=== PATIENT | male | born 1975 | race Hispanic/Latino ===

== ENCOUNTER 2018-09-12 15:59 | Emergency (ER) | payer OTHER ==
[2018-09-12] MEDS ORDERED: IBUPROFEN PO ONE (20:09)
--- NOTE | 2018-09-12 21:27 | XRay Report ---
FINAL REPORT PROCEDURE: Cervical spine. TECHNIQUE: Cervical spine radiographs, AP, lateral, and open-mouth odontoid views. CPT 03325 HISTORY: Neck pain. COMPARISON: No prior studies are available for comparison. FINDINGS: The cervical vertebrae have normal height and alignment. There are no fractures. There is no subluxat ion. There is mild disc space narrowing at C5-6. The prevertebral soft tissues have normal thickness. IMPRESSION: Mild degenerative disc disease at C5-6.
--- NOTE | 2018-09-12 21:36 | XRay Report ---
FINAL REPORT PROCEDURE: Right shoulder. TECHNIQUE: Three views. HISTORY: right shoulder pain COMPARISON: No prior studies are available for comparison. FINDINGS: The bones appear intact without fracture or dislocation. The joint spaces appear normal. The soft tis sues are unremarkable. IMPRESSION: Normal study.
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
[2018-09-12 22:21] VITALS: BP 109/68
== END 2018-09-12 22:30 | disposition home or self-care (01) ==
LOC: ED 15:59
DX: S13.4XXA Sprain of ligaments of cervical spine, initial encounter (principal); S46.911A Strain of unspecified muscle, fascia and tendon at shoulder and upper arm level, right arm, initial encounter; F17.200 Nicotine dependence, unspecified, uncomplicated; V89.2XXA Person injured in unspecified motor-vehicle accident, traffic, initial encounter; Y93.89 Activity, other specified; Y92.488 Other paved roadways as the place of occurrence of the external cause; Y99.8 Other external cause status
CPT/HCPCS: 72040; 99283

== ENCOUNTER 2019-06-28 18:12 | Inpatient (IN) | payer OTHER ==
[2019-06-28 19:06] LABS: Bacteria,Urine 1+ /HPF (Negative); Bilirubin,Urine MOD (Negative); Blood,Urine SM (Negative); Color,Urine Amber (Yellow); Mucus,Urine 2+ /HPF
[2019-06-28 19:22] LABS: Basophils % (Auto) 0.3 % (0.0-1.8); Eosinophils # (Auto) 0.1 K/mm3 (0.0-0.4); Eosinophils % (Auto) 2.5 % (0.0-4.3); Hematocrit 41.7 % (35.5-45.6); Hemoglobin 14.5 gm/dl (11.8-15.2); Lymphocytes # (Auto) 0.1 K/mm3 (1.2-5.4); Lymphocytes % (Auto) 4.5 % (13.4-35.0); Mean Corpuscular HGB Conc 35 % (32-34); Mean Corpuscular Volume 84 fl (84-94); Monocytes # (Auto) 0.3 K/mm3 (0.0-0.8); Red Blood Count 4.98 M/mm3 (3.65-5.03); Red Cell Distribution Width 14.7 % (13.2-15.2)
[2019-06-28 19:25] LABS: Ictotest,Urine Positive (Negative)
[2019-06-28 19:34] LABS: BUN/Creatinine Ratio 29; Blood Urea Nitrogen 20 mg/dL (9-20); Hemolysis Index 0
[2019-06-28 20:12] LABS: Platelet Count 90 K/mm3 (140-440)
[2019-06-28 20:25] LABS: Alanine Aminotransferase 3664 units/L (7-56)
[2019-06-28] MEDS ORDERED: SODIUM CHLORIDE 0.9% 500 ML 500 ML IV ONE (21:02)
[2019-06-28] MEDS ORDERED: ONDANSETRON 4 MG/2 ML INJ IV ONE (21:02)
[2019-06-28] MEDS ORDERED: MORPHINE 4 MG/1 ML INJ IV ONE (21:02)
--- NOTE | 2019-06-28 21:06 | Emergency Department Report ---
ED General Adult HPI - General Chief complaint: Abdominal Pain Stated complaint: DEYHDRATION/HEP C Time Seen by Provider: 06/28/19 20:54 Source: patient, RN notes reviewed Mode of arrival: Ambulatory Limitations: No Limitations - History of Present Illness Initial comments: This is a 43-year-old gentleman. This patient is not known to this provider pre viously. He may have a known history of hepatitis C. He does not have a primary care doctor. 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 He presents to the ER with complaint of 2-3 days nontraumatic right flank and right upper quadrant pain. He endorses nausea, vomiting, diarrhea, malaise, fatigue and weakness. Pain is sharp and throbbing, increases with palpation and decreases with rest. There is no hematemesis or bright red blood per rectum. He is not sure if he's having any fevers. He denies dysuria. -: Gradual, days(s) Location: abdomen Radiation: abdomen Quality: aching Consistency: other Improves with: other Worsens with: other - Related Data Previous Rx's Medication Instructions Recorded Last Taken Type HYDROcodone/APAP 7.5-325 [[place] 1 each PO Q6HR PRN #14 tablet 05/27/14 Unknown Rx 7.5/325 mg] Ibuprofen [Motrin] 600 mg PO Q8H PRN #15 tablet 01/25/16 Unknown Rx Penicillin Vk [Veetids TAB] 500 mg PO QID #30 tablet 01/25/16 Unknown Rx Cyclobenzaprine [Flexeril] 10 mg PO QHS PRN #10 tablet 09/12/18 Unknown Rx Ibuprofen [Motrin] 600 mg PO Q8H PRN #20 tablet 09/12/18 Unknown Rx Allergies Allergy/AdvReac Type Severity Reaction Status Date / Time No Known Allergies Allergy Unverified 05/27/14 19:39 ED Review of Systems ROS: Stated complaint: DEYHDRATION/HEP C Other details as noted in HPI Constitutional: malaise, weakness. denies: fever ENT: denies: congestion Respiratory: denies: wheezing Cardiovascular: denies: syncope Gastrointestinal: abdominal pain, nausea, vomiting, diarrhea. denies: constipation, hematemesis, melena, hematochezia Genitourinary: denies: dysuria, testicular pain Musculoskeletal: back pain Skin: denies: lesions Neurological: weakness Hematological/Lymphatic: denies: easy bleeding ED Past Medical Hx - Past Medical History Previous Medical History?: Yes Additional medical history: Hep C - Surgical History Past Surgical History?: No - Social History Smoking Status: Current Every Day Smoker Substance Use Type: Other - Medications Home Medications: Home Medications Medication Instructions Recorded Confirmed Last Taken Type HYDROcodone/APAP 7.5-325 [[place] 1 each PO Q6HR PRN #14 tablet 05/27/14 Unknown Rx 7.5/325 mg] Ibuprofen [Motrin] 600 mg PO Q8H PRN #15 tablet 01/25/16 Unknown Rx Penicillin Vk [Veetids TAB] 500 mg PO QID #30 tablet 01/25/16 Unknown Rx Cyclobenzaprine [Flexeril] 10 mg PO QHS PRN #10 tablet 09/12/18 Unknown Rx Ibuprofen [Motrin] 600 mg PO Q8H PRN #20 tablet 09/12/18 Unknown Rx ED Physical Exam - General Limitations: No Limitations General appearance: alert, in no apparent distress - Head Head exam: Present: atraumatic, normocephalic - Eye Eye exam: Present: normal appearance, EOMI, scleral icterus - ENT ENT exam: Present: normal orophraynx, mucous membranes dry, normal external ear exam - Neck Neck exam: Present: normal inspection, full ROM. Absent: tenderness, meningismus - Respiratory Respiratory exam: Present: normal lung sounds bilaterally. Absent: respiratory distress - Cardiovascular Cardiovascular Exam: Present: normal rhythm, tachycardia, normal heart sounds. Absent: systolic murmur, diastolic murmur, rubs, gallop - GI/Abdominal GI/Abdominal exam: Present: soft, tenderness, other (right flank tender, right upper quadrant tenderness). Absent: distended, guarding, rebound, pulsatile mass - Rectal Rectal exam: Present: deferred - Extremities Exam Extremities exam: Present: normal inspection, full ROM, other (2+ pulses noted in the bilateral upper, lower extremities. There is no long bone tenderness. Musculoskeletal compartments are soft. The pelvis is stable.). Absent: pedal edema, joint swelling, calf tenderness - Back Exam Back exam: Present: normal inspection, full ROM. Absent: tenderness, CVA tenderness (R), CVA tenderness (L), paraspinal tenderness, vertebral tenderness - Neurological Exam Neurological exam: Present: alert, other (there is no facial droop. The tongue is midline. Extraocular movements are intact bilaterally. Patient speaking in full complete sentences. Shoulder shrug is intact bilaterally. Hearing is grossly intact bilaterally. Visual acuity intact to finger counting and color perception at a close distance. 5/5 strength 4 extremities. Sensation intact to light touch in 4 extremities.). Absent: motor sensory deficit - Psychiatric Psychiatric exam: Present: anxious - Skin Skin exam: Present: warm, other (patient appears to be jaundiced) ED Course Vital Signs 06/28/19 06/28/19 18:29 20:57 Temperature 98.9 F Pulse Rate 100 H Respiratory 18 20 Rate Blood Pressure 125/77 O2 Sat by Pulse 100 100 Oximetry - Reevaluation(s) Reevaluation #1: 06/28/19 21:42 Differential diagnosis, including but not limited to: Hepatitis, cholangitis, cholecystitis, bacterial peritonitis, colitis, diverticulitis, perforated viscus, appendicitis, renal colic, hepatic abscess Assessment and plan: 43-year-old gentleman who is jaundiced, tender, tachycardic, leukopenic, we will obtain ultrasound, CT scan abdomen pelvis, treat symptoms, and reassess. 06/28/19 23:32 Reevaluation #2: 06/28/19 22:26 Ultrasound suggest possible cholecystitis. CT scan abdomen pelvis pending. General surgeon on-call was paged. 06/28/19 22:34 Discussed with general surgeon on-call, Dr. Mcgarry, Who agrees to see the patient in the morning and consultation. Recommends Flagyl for empiric coverag e. Office opinion that issue is most likely hepatic in nature, and after CT scan is interpreted, morning team will determine if further imaging is indicated. Patient is also found to have a hypomagnesemia, therefore, magnesium supplementation is ordered. Reevaluation #3: 06/28/19 23:21 Hospital physician, Dr. Hussein, has accepted the patient to the medical service. ED Medical Decision Making - Lab Data Result diagrams: 06/28/19 18:56 06/28/19 18:56 Vital Signs 06/28/19 06/28/19 18:29 20:57 Temperature 98.9 F Pulse Rate 100 H Respiratory 18 20 Rate Blood Pressure 125/77 O2 Sat by Pulse 100 100 Oximetry Lab Results 06/28/19 06/28/19 06/28/19 Range/Units 18:44 18:56 18:56 WBC 3.2 L (4.5-11.0) K/mm3 RBC 4.98 (3.65-5.03) M/mm3 Hgb 14.5 (11.8-15.2) gm/dl Hct 41.7 (35.5-45.6) % MCV 84 (84-94) fl MCH 29 (28-32) pg MCHC 35 H (32-34) % RDW 14.7 (13.2-15.2) % Plt Count 90 L (140-440) K/mm3 Lymph % (Auto) 4.5 L (13.4-35.0) % [place] % (Auto) 8.0 H (0.0-7.3) % Eos % (Auto) 2.5 (0.0-4.3) % Baso % (Auto) 0.3 (0.0-1.8) % Lymph # 0.1 L (1.2-5.4) K/mm3 [place] # 0.3 (0.0-0.8) K/mm3 Eos # 0.1 (0.0-0.4) K/mm3 Baso # 0.0 (0.0-0.1) K/mm3 Seg Neutrophils % 84.7 H (40.0-70.0) % Seg Neutrophils # 2.7 (1.8-7.7) K/mm3 Sodium 134 L (137-145) mmol/L Potassium 4.5 (3.6-5.0) mmol/L Chloride 94.3 L (98-107) mmol/L Carbon Dioxide 24 (22-30) mmol/L Anion Gap 20 mmol/L BUN 20 (9-20) mg/dL Creatinine 0.7 L (0.8-1.5) mg/dL Estimated GFR > 60 ml/min BUN/Creatinine Ratio 29 % Glucose 113 H (75-100) mg/dL Calcium 9.0 (8.4-10.2) mg/dL Total Bilirubin 8.60 H (0.1-1.2) mg/dL AST 4506 H (5-40) units/L ALT 3664 H (7-56) units/L Alkaline Phosphatase 268 H (35-129) units/L Total Protein 6.6 (6.3-8.2) g/dL Albumin 4.0 (3.9-5) g/dL Albumin/Globulin Ratio 1.5 % Lipase 7 L (13-60) units/L Urine Color [place] (Yellow) Urine Turbidity Slightly-cloudy (Clear) Urine pH 5.0 (5.0-7.0) Ur Specific [place] 1.034 H (1.003-1.030) Urine Protein 100 mg/dl (Negative) mg/dL Urine Glucose (UA) Neg (Negative) mg/dL Urine Ketones Neg (Negative) mg/dL Urine Blood Sm (Negative) Urine Nitrite Neg (Negative) Urine Bilirubin Mod (Negative) Urine Ictotest Positive (Negative) Urine Urobilinogen 4.0 (<2.0) mg/dL Ur Leukocyte Esterase Neg (Negative) Urine WBC (Auto) 7.0 H (0.0-6.0) /HPF Urine RBC (Auto) 4.0 (0.0-6.0) /HPF U Epithel Cells (Auto) 1.0 (0-13.0) /HPF Urine Bacteria (Auto) 1+ (Negative) /HPF Urine Mucus 2+ /HPF Urine Yeast (Budding) 2+ /HPF - EKG Data When compared to previous EKG there are: previous EKG unavailable 06/28/19 22:25 The EKG shows a sinus rhythm, 90 beats for minute, normal axis, QTC 403 ms, there is poor R-wave progression, the EKG is abnormal, the EKG is not consistent with ST elevation myocardial infarction - Radiology Data Radiology results: report reviewed, image reviewed Print Report Referring Physician: RUPERT GREEN Patient Name: DARWIN TAMAYO Date of : 1975 Sex: Male Report Date: 2019-06-28 Report Status: Finalized Findings [facility] [address] [place] [address] Ultrasound Report Signed Patient: DARWIN TAMAYO MR#: [id number] : 1975 Acct:[id number] Age/Sex: 43 / M ADM Date: 06/28/19 Loc: ED Attending Dr: Ordering Physician: RUPERT GREEN MD Date of Service: 06/28/19 Procedure(s): US abdomen limited Accession Number(s): [id number] cc: RUPERT GREEN MD ULTRASOUND ABDOMEN, LIMITED (RIGHT UPPER QUADRANT) INDICATION / CLINICAL INFORMATION: ruq pain n/v. COMPARISON: None available. FINDINGS: PANCREAS: Normal seen due to overlying bowel gas. LIVER: Liver appears mildly enlarged measuring 19.4 cm. No focal abnormality. GALLBLADDER: No calcified gallstones identified. Marked gallbladder wall thickening and edema with the wall measuring up to 9 mm in thickness. BILE DUCTS: No significant abnormality. Common bile duct measures 1.0 mm. FREE FLUID: None. ADDITIONAL FINDINGS: None. IMPRESSION: 1. Thickened and edematous gallbladder wall without definite calcified gallstones noted. Clinical and laboratory correlation for acute cholecystitis is recommended. Signer Name: April Estes MD Signed: 06/28/2019 10:09 PM Workstation Name: [id number] Transcribed By: DT Dictated By: Dean Estes MD Electronically Authenticated By: Dean Estes MD Signed Date/Time: 06/28/19 1840 Print Report Referring Physician: RUPERT GREEN Patient Name: DARWIN TAMAYO Date of : 1975 Sex: Male Report Date: 2019-06-28 Report Status: [place] [address] Cat Scan Report Signed Patient: DARWIN TAMAYO MR#: [id number] : 1975 Acct:[id number] Age/Sex: 43 / M ADM Date: 06/28/19 Loc: ED Attending Dr: Ordering Physician: RUPERT GREEN MD Date of Service: 06/28/19 Procedure(s): CT abdomen pelvis w con Accession Number(s): [id number] cc: RUPERT GREEN MD CT abdomen pelvis w con INDICATION: abd and flank pain, right sided. TECHNIQUE: All CT scans at this location are performed using the uchoose dose modulation technique: Automated exposure control. CONTRAST: Omnipaque 300, 100 cc IV injection. COMPARISON: Ultrasound earlier the same day. CT ABDOMEN: Evaluation of the parenchymal organs demonstrates splenomegaly measuring 17.1 cm. The remaining parenchymal organs are unremarkable. Prominent thickening/edema of the gallbladder wall is noted. There are small nodes at the gastrohepatic ligament and along the lateral aspect of the leidy hepatis. The largest is a portacaval node measuring 1.5 cm in the greatest short axis dimension. There is also mild inflammation/fluid. Negative for abdominal mass or fluid collection. The bowel is not dilated or thickened. CT PELVIS: Negative fo r mass, fluid or inflammation. A small amount of pelvic free fluid is present. IMPRESSION: 1. Prominent gallbladder wall thickening/edema. 2. Small nodes with mild adjacent inflammation at the gastrohepatic ligament and along the lateral aspect of the leidy hepatis. This is of uncertain etiology. 3. Mild free fluid. Signer Name: Faraz Nolan MD Signed: 06/28/2019 11:08 PM Workstation Name: [id number] Transcribed By: ES Dictated By: Faraz Nolan MD Electronically Authenticated By: Faraz Nolan MD Signed Date/Time: 06/28/192307 DD/ 57 Critical Care Time: Yes Critical care time in (mins) excluding proc time.: 35 Critical care attestation.: If time is entered above; I have spent that time in minutes in the direct care of this critically ill patient, excluding procedure time. ED Disposition Clinical Impression: SIRS (systemic inflammatory response syndrome), Transaminitis, Hypomagnesemia Disposition: -09 OP ADMIT IP TO THIS HOSP Is pt being admited?: Yes Condition: Good
[2019-06-28] MEDS ORDERED: SODIUM CHLORIDE 0.9% 1000 ML 2,000 ML IV ONE (21:43)
[2019-06-28] MEDS ORDERED: cefTRIAXone/NS 1 GM/50 ML 1 GM/50 ML BAG IV ONE (21:43)
[2019-06-28] MEDS ORDERED: SODIUM CHLORIDE 0.9% 1000 ML 1,000 ML IV ONE (21:43)
[2019-06-28] MEDS ORDERED: HYDROmorphone 1 MG/1 ML INJ IV ONE (22:07)
--- NOTE | 2019-06-28 22:14 | Ultrasound Report ---
ULTRASOUND ABDOMEN, LIMITED (RIGHT UPPER QUADRANT) INDICATION / CLINICAL INFORMATION: ruq pain n/v. COMPARISON: None available. FINDINGS: PANCREAS: Normal seen due to overlying bowel gas. LIVER: Liver appears mildly enlarged measuring 19.4 cm. No focal abnormality. GALLBLADDER: No calcified gallstones identified. Marked gallbladder wall thickening and edema with th e wall measuring up to 9 mm in thickness. BILE DUCTS: No significant abnormality. Common bile duct measures 1.0 mm. FREE FLUID: None. ADDITIONAL FINDINGS: None. IMPRESSION: 1. Thickened and edematous gallbladder wall without definite calcified gallstones noted. Clinical and laboratory correlation for acute cholecystitis is recommended. Signer Name: April Estes MD Signed: 06/28/2019 10:09 PM Workstation Name: [id number]
[2019-06-28 22:23] LABS: Bilirubin,Direct 3.2 mg/dL (0-0.2)
[2019-06-28 22:31] LABS: INR 2.34 (0.87-1.13)
[2019-06-28 22:32] LABS: Partial Thromboplastin Time 46.6 Sec. (24.2-36.6)
[2019-06-28] MEDS ORDERED: metroNIDAZOLE/NS 500 MG/100 ML 500 MG/100 ML BAG IV ONE (22:33)
[2019-06-28] MEDS ORDERED: MAGNESIUM SULFATE 2 GM/50 ML BAG IV ONE (22:33)
[2019-06-28] MEDS ORDERED: MAGNESIUM OXIDE 400 MG TAB PO ONE (23:00)
[2019-06-28] MEDS ORDERED: MAGNESIUM SULFATE 1 GM in SODIUM CHLORIDE 0.9% 50 ML IV ONE (23:00)
--- NOTE | 2019-06-28 23:13 | Cat Scan Report ---
CT abdomen pelvis w con INDICATION: abd and flank pain, right sided. TECHNIQUE: All CT scans at this location are performed using the following dose modulation technique: Automated exposure control. CONTRAST: Omnipaque 300, 100 cc IV injection. COMPARISON: Ultrasound earlier the same day. CT ABDOMEN: Evaluation of the parenchymal organs demonstrates splenomegaly measuring 17.1 cm. The rem aining parenchymal organs are unremarkable. Prominent thickening/edema of the gallbladder wall is not ed. There are small nodes at the gastrohepatic ligament and along the lateral aspect of the leidy hep atis. The largest is a portacaval node measuring 1.5 cm in the greatest short axis dimension. There i s also mild inflammation/fluid. Negative for abdominal mass or fluid collection. The bowel is not dilated or thickened. CT PELVIS: Negative for mass, fluid or inflammation. A small amount of pelvic free fluid is present. IMPRESSION: 1. Prominent gallbladder wall thickening/edema. 2. Small nodes with mild adjacent inflammation at the gastrohepatic ligament and along the lateral as pect of the leidy hepatis. This is of uncertain etiology. 3. Mild free fluid. Signer Name: Faraz Nolan MD Signed: 06/28/2019 11:08 PM Workstation Name: [id number]
[2019-06-28] MEDS ORDERED: ACETAMINOPHEN 325 MG TAB PO PRN (23:58)
[2019-06-28] MEDS ORDERED: ONDANSETRON 4 MG/2 ML INJ IV PRN (23:58)
[2019-06-28] MEDS ORDERED: MORPHINE 2 MG/1 ML INJ IV PRN (23:58)
--- NOTE | 2019-06-28 23:58 | History and Physical Report ---
History of Present Illness Date of examination: 06/28/19 History of present illness: 43-year-old a history of hepatitis C to the [facility] emergency room complaining of abdominal pain 2 days. Pain is in the right upper quadrant which he describes as sharp, dull, constant, intensity 7/10, no radiation, cannot identify exacerbating factors. Admits to nausea vomiting, generalized weakness. Stated he had diarrhea today but now resolved: No fever or chills review Of Systems: Constitutional: no weight loss, fever, chills Ears, eyes, nose, mouth and throat: no nasal congestion, no nasal discharge, no sinus pressure, blurry vision, diplopia Neck: No neck pain or rigidity. Cardiovascular: No palpitations Respiratory: No cough, shortness of breath Gastrointestinal: No hematochezia Genitourinary : no dysuria, frequency , hematuria Musculoskeletal: no muscle ache , joint pain Integumentary: no rash, no pruritis Neurological: no parathesias, focal weakness Endocrine: no cold or heat intolerance, no polyuria or polydipsia Hematologic/Lymphatic: no easy bruising, no easy bleeding, no gland swelling Allergic/Immunologic: no urticaria, no angioedema. PAST MEDICAL HISTORY:hepatitis C PAST SURGICAL HISTORY: None FAMILY HISTORY:hypertension, diabetes SOCIAL HISTORY: Denies drugs, alcohol, smoke 1 pack daily Medications and Allergies Allergies Allergy/AdvReac Type Severity Reaction Status Date / Time No Known Allergies Allergy Unverified 05/27/14 19:39 Home Medications Medication Instructions Recorded Confirmed Last Taken Type HYDROcodone/APAP 7.5-325 [[place] 1 each PO Q6HR PRN #14 tablet 05/27/14 Unknown Rx 7.5/325 mg] Ibuprofen [Motrin] 600 mg PO Q8H PRN #15 tablet 01/25/16 Unknown Rx Penicillin Vk [Veetids TAB] 500 mg PO QID #30 tablet 01/25/16 Unknown Rx Cyclobenzaprine [Flexeril] 10 mg PO QHS PRN #10 tablet 09/12/18 Unknown Rx Ibuprofen [Motrin] 600 mg PO Q8H PRN #20 tablet 09/12/18 Unknown Rx Active Meds: Active Medications Magnesium Sulfate 1 gm/ Sodium (Chloride) 52 mls @ 52 mls/hr IV ONCE ONE Stop: 06/28/19 23:59 Exam - Physical Exam Narrative exam: General Apperance: The patient sitting in bed no acute distress HEENT: Normocephalic, atraumatic. Pupils equally round and reactive to light, extraocular movement intact, and no sclericterus or JVD or thyromegaly or nodule. Neck supple, no carotid bruit, mucous membranes moist, no exudate or erythema Heart: S1-S2, regular is rhythm Lungs: Clear to auscultation bilaterally, breathing comfortable Abdomen: Positive bowel sounds, soft, tenderin RUQ, nondistended, no organomegaly Extremities: No edema cyanosis clubbing Skin: no rash, nodule, warm and dry Neuro:CN 2 -12 intact, motor/sensory intact, speech is fluent - Constitutional Vitals: Temp Pulse Resp BP Pulse Ox 98.9 F 100 H 20 125/77 100 06/28/19 18:29 06/28/19 18:29 06/28/19 20:57 06/28/19 18:29 06/28/19 20:57 Results - Labs CBC & Chem 7: 06/28/19 18:56 06/28/19 18:56 Labs: Abnormal lab results 06/28/19 06/28/19 06/28/19 Range/Units 18:44 18:56 18:56 WBC 3.2 L (4.5-11.0) K/mm3 MCHC 35 H (32-34) % Plt Count 90 L (140-440) K/mm3 Lymph % (Auto) 4.5 L (13.4-35.0) % Perkins % (Auto) 8.0 H (0.0-7.3) % Lymph # 0.1 L (1.2-5.4) K/mm3 Seg Neutrophils % 84.7 H (40.0-70.0) % PT (12.2-14.9) Sec. INR (0.87-1.13) APTT (24.2-36.6) Sec. Sodium 134 L (137-145) mmol/L Chloride 94.3 L (98-107) mmol/L Creatinine 0.7 L (0.8-1.5) mg/dL Glucose 113 H (75-100) mg/dL Magnesium (1.7-2.3) mg/dL Total Bilirubin 8.60 H (0.1-1.2) mg/dL Direct Bilirubin (0-0.2) mg/dL AST 4506 H (5-40) units/L ALT 3664 H (7-56) units/L Alkaline Phosphatase 268 H (35-129) units/L Ammonia (25-60) umol/L Total Creatine Kinase (55-170) units/L Lipase 7 L (13-60) units/L Ur Specific [place] 1.034 H (1.003-1.030) Urine WBC (Auto) 7.0 H (0.0-6.0) /HPF Salicylates (2.8-20.0) mg/dL Acetaminophen (10.0-30.0) ug/mL 06/28/19 06/28/19 06/28/19 Range/Units 21:56 21:56 21:56 WBC (4.5-11.0) K/mm3 MCHC (32-34) % Plt Count (140-440) K/mm3 Lymph % (Auto) (13.4-35.0) % Perkins % (Auto) (0.0-7.3) % Lymph # (1.2-5.4) K/mm3 Seg Neutrophils % (40.0-70.0) % PT 25.2 H (12.2-14.9) Sec. INR 2.34 H (0.87-1.13) APTT 46.6 H (24.2-36.6) Sec. Sodium (137-145) mmol/L Chloride (98-107) mmol/L Creatinine (0.8-1.5) mg/dL Glucose (75-100) mg/dL Magnesium 0.70 L* (1.7-2.3) mg/dL Total Bilirubin 3.30 H (0.1-1.2) mg/dL Direct Bilirubin 3.2 H (0-0.2) mg/dL AST (5-40) units/L ALT (7-56) units/L Alkaline Phosphatase (35-129) units/L Ammonia 19.0 L (25-60) umol/L Total Creatine Kinase 13 L (55-170) units/L Lipase (13-60) units/L Ur Specific [place] (1.003-1.030) Urine WBC (Auto) (0.0-6.0) /HPF Salicylates (2.8-20.0) mg/dL Acetaminophen (10.0-30.0) ug/mL 06/28/19 06/28/19 Range/Units 21:56 21:56 WBC (4.5-11.0) K/mm3 MCHC (32-34) % Plt Count (140-440) K/mm3 Lymph % (Auto) (13.4-35.0) % Perkins % (Auto) (0.0-7.3) % Lymph # (1.2-5.4) K/mm3 Seg Neutrophils % (40.0-70.0) % PT (12.2-14.9) Sec. INR (0.87-1.13) APTT (24.2-36.6) Sec. Sodium (137-145) mmol/L Chloride (98-107) mmol/L Creatinine (0.8-1.5) mg/dL Glucose (75-100) mg/dL Magnesium (1.7-2.3) mg/dL Total Bilirubin (0.1-1.2) mg/dL Direct Bilirubin (0-0.2) mg/dL AST (5-40) units/L ALT (7-56) units/L Alkaline Phosphatase (35-129) units/L Ammonia (25-60) umol/L Total Creatine Kinase (55-170) units/L Lipase (13-60) units/L Ur Specific [place] (1.003-1.030) Urine WBC (Auto) (0.0-6.0) /HPF Salicylates < 0.3 L (2.8-20.0) mg/dL Acetaminophen < 5.0 L (10.0-30.0) ug/mL - Imaging and Cardiology CT scan - abdomen: report reviewed CT scan - pelvis: report reviewed US - abdomen: report reviewed Assessment and Plan Assessment Acute cholecystitis Hepatitis C Coagulopathy Thrombocytopenia Plan Admit to medicine Start IV fluid, IV Zosyn, IV morphine Surgery was consulted to see the patient DVT prophylaxis
[2019-06-29] MEDS ORDERED: MAGNESIUM SULFATE 2 GM/50 ML BAG IV ONE (00:38)
[2019-06-29] MEDS ORDERED: MORPHINE 2 MG/1 ML INJ ONE (01:18)
[2019-06-29] MEDS: SODIUM CHLORIDE 0.9% 1000 ML 1,000 ML IV SCH (03:35)
[2019-06-29] MEDS: PIPERACIL/TAZOBACTA 4.5/NS 100 4.5 GM/100 ML VIAL IV SCH ×3 (06:19→22:12)
[2019-06-29 06:22] LABS: Hematocrit 37.1 % (35.5-45.6); Hemoglobin 12.8 gm/dl (11.8-15.2); Mean Corpuscular HGB Conc 34 % (32-34); Mean Corpuscular Volume 84 fl (84-94); Red Blood Count 4.45 M/mm3 (3.65-5.03); Red Cell Distribution Width 14.5 % (13.2-15.2)
[2019-06-29 06:52] LABS: BUN/Creatinine Ratio 32; Blood Urea Nitrogen 16 mg/dL (9-20); Hemolysis Index 6
[2019-06-29 07:06] LABS: Alanine Aminotransferase 5452 units/L (7-56)
[2019-06-29 08:03] LABS: Platelet Count 66 K/mm3 (140-440)
[2019-06-29 08:46] LABS: Band Neutrophils # (Manual) 0.5 K/mm3; Basophils % (Manual) 0 % (0.0-1.8); Burr Cells Few; Ovalocytes 1+; Total Cells Counted 100
[2019-06-29 08:47] LABS: Platelet Estimate Consistent w Auto
--- NOTE | 2019-06-29 10:42 | Consultation ---
History of Present Illness Consult date: 06/29/19 Reason for consult: abdominal pain Chief complaint: abdominal pain - History of present illness History of present illness: 43 yo M with hx of Hep C who presents to the ER with 4 days of worsening epigas tric and RUQ abdominal pain. The pain started suddenly and has been constant. It does not radiate. It is dull in nature. He has never had pain like this in the past. He does not associate the pain with food. He has not had treatment or follow up for his Hep C due to lack on insurance. He admits to n/v (nonbloody/nonbilious) which is now resolved. He is asking for something to drink. No f/c, cp, sob, c/d. Past History Past Medical History: other (HepC) Past Surgical History: No surgical history Social history: smoking (1 PPD). denies: alcohol abuse, IV drug use Family history: no significant family history Medications and Allergies Allergies Allergy/AdvReac Type Severity Reaction Status Date / Time No Known Allergies Allergy Unverified 05/27/14 19:39 Home Medications Medication Instructions Recorded Confirmed Last Taken Type No Known Home Medications [No 06/29/19 06/29/19 Unknown History Reported Home Medications] Active Meds: Active Medications Acetaminophen (Tylenol) 650 mg PO Q4H PRN PRN Reason: Pain MILD(1-3)/Fever >100.5/VENCES Sodium Chloride (Nacl 0.9% 1000 Ml) 1,000 mls @ 100 mls/hr IV DIRECT JV Last Admin: 06/29/19 03:35 Dose: 100 mls/hr Documented by: Piperacillin Sod/Tazobactam Sod (Zosyn/Ns 4.5gm/100ml) 4.5 gm in 100 mls @ 200 mls/hr IV Q8HR JV; Protocol Last Admin: 06/29/19 06:19 Dose: 200 mls/hr Documented by: Morphine Sulfate (Morphine) 2 mg IV Q4H PRN PRN Reason: Pain, Moderate (4-6) Last Admin: 06/29/19 06:18 Dose: 2 mg Documented by: Ondansetron HCl (Zofran) 4 mg IV Q8H PRN PRN Reason: Nausea And Vomiting Sodium Chloride (Sodium Chloride Flush Syringe 10 Ml) 10 ml IV BID JV Sodium Chloride (Sodium Chloride Flush Syringe 10 Ml) 10 ml IV PRN PRN PRN Reason: LINE FLUSH Review of Systems All systems: negative (10 PT ROS performed and negative except for that listed in HPI) Exam Vital Signs Temp Pulse Resp BP Pulse Ox 98.9 F 100 H 18 125/77 100 06/28/19 18:29 06/28/19 18:29 06/28/19 18:29 06/28/19 18:29 06/28/19 18:29 Narrative exam: Gen: AAOx3. moderate distress due to abdominal pain ENT: mild scleral icterus. CV: S1, S2+ Resp; even and unlabored Abd: soft, ND, + RUQ and epigastric TTP. No r/r/g Ext: no c/c/e Results - Labs 06/29/19 06:08 06/29/19 06:08 Abnormal lab results 06/28/19 06/28/19 06/28/19 Range/Units 18:44 18:56 18:56 WBC 3.2 L (4.5-11.0) K/mm3 MCHC 35 H (32-34) % Plt Count 90 L (140-440) K/mm3 Lymph % (Auto) 4.5 L (13.4-35.0) % Nelson % (Auto) 8.0 H (0.0-7.3) % Lymph # 0.1 L (1.2-5.4) K/mm3 Seg Neutrophils % 84.7 H (40.0-70.0) % Lymphocytes % (Manual) (13.4-35.0) % Eosinophils % (Manual) (0.0-4.3) % Seg Neutrophils # Man (1.8-7.7) K/mm3 Lymphocytes # (Manual) (1.2-5.4) K/mm3 PT (12.2-14.9) Sec. INR (0.87-1.13) APTT (24.2-36.6) Sec. Sodium 134 L (137-145) mmol/L Chloride 94.3 L (98-107) mmol/L Carbon Dioxide (22-30) mmol/L Creatinine 0.7 L (0.8-1.5) mg/dL Glucose 113 H (75-100) mg/dL Calcium (8.4-10.2) mg/dL Magnesium (1.7-2.3) mg/dL Total Bilirubin 8.60 H (0.1-1.2) mg/dL Direct Bilirubin (0-0.2) mg/dL AST 4506 H (5-40) units/L ALT 3664 H (7-56) units/L Alkaline Phosphatase 268 H (35-129) units/L Ammonia (25-60) umol/L Total Creatine Kinase (55-170) units/L Total Protein (6.3-8.2) g/dL Albumin (3.9-5) g/dL Lipase 7 L (13-60) units/L Ur Specific [place] 1.034 H (1.003-1.030) Urine WBC (Auto) 7.0 H (0.0-6.0) /HPF Salicylates (2.8-20.0) mg/dL Acetaminophen (10.0-30.0) ug/mL 06/28/19 06/28/19 06/28/19 Range/Units 21:56 21:56 21:56 WBC (4.5-11.0) K/mm3 MCHC (32-34) % Plt Count (140-440) K/mm3 Lymph % (Auto) (13.4-35.0) % Nelson % (Auto) (0.0-7.3) % Lymph # (1.2-5.4) K/mm3 Seg Neutrophils % (40.0-70.0) % Lymphocytes % (Manual) (13.4-35.0) % Eosinophils % (Manual) (0.0-4.3) % Seg Neutrophils # Man (1.8-7.7) K/mm3 Lymphocytes # (Manual) (1.2-5.4) K/mm3 PT 25.2 H (12.2-14.9) Sec. INR 2.34 H (0.87-1.13) APTT 46.6 H (24.2-36.6) Sec. Sodium (137-145) mmol/L Chloride (98-107) mmol/L Carbon Dioxide (22-30) mmol/L Creatinine (0.8-1.5) mg/dL Glucose (75-100) mg/dL Calcium (8.4-10.2) mg/dL Magnesium 0.70 L* (1.7-2.3) mg/dL Total Bilirubin 3.30 H (0.1-1.2) mg/dL Direct Bilirubin 3.2 H (0-0.2) mg/dL AST (5-40) units/L ALT (7-56) units/L Alkaline Phosphatase (35-129) units/L Ammonia 19.0 L (25-60) umol/L Total Creatine Kinase 13 L (55-170) units/L Total Protein (6.3-8.2) g/dL Albumin (3.9-5) g/dL Lipase (13-60) units/L Ur Specific [place] (1.003-1.030) Urine WBC (Auto) (0.0-6.0) /HPF Salicylates (2.8-20.0) mg/dL Acetaminophen (10.0-30.0) ug/mL 06/28/19 06/28/19 06/29/19 Range/Units 21:56 21:56 06:08 WBC 1.8 L* (4.5-11.0) K/mm3 MCHC (32-34) % Plt Count 66 L (140-440) K/mm3 Lymph % (Auto) (13.4-35.0) % Nelson % (Auto) (0.0-7.3) % Lymph # (1.2-5.4) K/mm3 Seg Neutrophils % (40.0-70.0) % Lymphocytes % (Manual) 6.0 L (13.4-35.0) % Eosinophils % (Manual) 5.0 H (0.0-4.3) % Seg Neutrophils # Man 1.0 L (1.8-7.7) K/mm3 Lymphocytes # (Manual) 0.1 L (1.2-5.4) K/mm3 PT (12.2-14.9) Sec. INR (0.87-1.13) APTT (24.2-36.6) Sec. Sodium (137-145) mmol/L Chloride (98-107) mmol/L Carbon Dioxide (22-30) mmol/L Creatinine (0.8-1.5) mg/dL Glucose (75-100) mg/dL Calcium (8.4-10.2) mg/dL Magnesium (1.7-2.3) mg/dL Total Bilirubin (0.1-1.2) mg/dL Direct Bilirubin (0-0.2) mg/dL AST (5-40) units/L ALT (7-56) units/L Alkaline Phosphatase (35-129) units/L Ammonia (25-60) umol/L Total Creatine Kinase (55-170) units/L Total Protein (6.3-8.2) g/dL Albumin (3.9-5) g/dL Lipase (13-60) units/L Ur Specific [place] (1.003-1.030) Urine WBC (Auto) (0.0-6.0) /HPF Salicylates < 0.3 L (2.8-20.0) mg/dL Acetaminophen < 5.0 L (10.0-30.0) ug/mL 06/29/19 Range/Units 06:08 WBC (4.5-11.0) K/mm3 MCHC (32-34) % Plt Count (140-440) K/mm3 Lymph % (Auto) (13.4-35.0) % Nelson % (Auto) (0.0-7.3) % Lymph # (1.2-5.4) K/mm3 Seg Neutrophils % (40.0-70.0) % Lymphocytes % (Manual) (13.4-35.0) % Eosinophils % (Manual) (0.0-4.3) % Seg Neutrophils # Man (1.8-7.7) K/mm3 Lymphocytes # (Manual) (1.2-5.4) K/mm3 PT (12.2-14.9) Sec. INR (0.87-1.13) APTT (24.2-36.6) Sec. Sodium 134 L (137-145) mmol/L Chloride (98-107) mmol/L Carbon Dioxide 21 L (22-30) mmol/L Creatinine 0.5 L (0.8-1.5) mg/dL Glucose (75-100) mg/dL Calcium 8.0 L (8.4-10.2) mg/dL Magnesium (1.7-2.3) mg/dL Total Bilirubin 8.80 H (0.1-1.2) mg/dL Direct Bilirubin (0-0.2) mg/dL AST 7964 H (5-40) units/L ALT 5452 H (7-56) units/L Alkaline Phosphatase 226 H (35-129) units/L Ammonia (25-60) umol/L Total Creatine Kinase (55-170) units/L Total Protein 5.2 L D (6.3-8.2) g/dL Albumin 3.0 L (3.9-5) g/dL Lipase (13-60) units/L Ur Specific [place] (1.003-1.030) Urine WBC (Auto) (0.0-6.0) /HPF Salicylates (2.8-20.0) mg/dL Acetaminophen (10.0-30.0) ug/mL Diabetes panel 06/28/19 06/29/19 Range/Units 18:56 06:08 Sodium 134 L 134 L (137-145) mmol/L Potassium 4.5 4.0 (3.6-5.0) mmol/L Chloride 94.3 L 99.6 (98-107) mmol/L Carbon Dioxide 24 21 L (22-30) mmol/L BUN 20 16 (9-20) mg/dL Creatinine 0.7 L 0.5 L (0.8-1.5) mg/dL Glucose 113 H 76 (75-100) mg/dL Calcium 9.0 8.0 L (8.4-10.2) mg/dL AST 4506 H 7964 H (5-40) units/L ALT 3664 H 5452 H (7-56) units/L Alkaline Phosphatase 268 H 226 H (35-129) units/L Total Protein 6.6 5.2 L D (6.3-8.2) g/dL Albumin 4.0 3.0 L (3.9-5) g/dL Calcium panel 06/28/19 06/29/19 Range/Units 18:56 06:08 Calcium 9.0 8.0 L (8.4-10.2) mg/dL Albumin 4.0 3.0 L (3.9-5) g/dL Pituitary panel 06/28/19 06/29/19 Range/Units 18:56 06:08 Sodium 134 L 134 L (137-145) mmol/L Potassium 4.5 4.0 (3.6-5.0) mmol/L Chloride 94.3 L 99.6 (98-107) mmol/L Carbon Dioxide 24 21 L (22-30) mmol/L BUN 20 16 (9-20) mg/dL Creatinine 0.7 L 0.5 L (0.8-1.5) mg/dL Glucose 113 H 76 (75-100) mg/dL Calcium 9.0 8.0 L (8.4-10.2) mg/dL Adrenal panel 06/28/19 06/28/19 06/29/19 Range/Units 18:56 21:56 06:08 Sodium 134 L 134 L (137-145) mmol/L Potassium 4.5 4.0 (3.6-5.0) mmol/L Chloride 94.3 L 99.6 (98-107) mmol/L Carbon Dioxide 24 21 L (22-30) mmol/L BUN 20 16 (9-20) mg/dL Creatinine 0.7 L 0.5 L (0.8-1.5) mg/dL Glucose 113 H 76 (75-100) mg/dL Calcium 9.0 8.0 L (8.4-10.2) mg/dL Total Bilirubin 8.60 H 3.30 H 8.80 H (0.1-1.2) mg/dL AST 4506 H 7964 H (5-40) units/L ALT 3664 H 5452 H (7-56) units/L Alkaline Phosphatase 268 H 226 H (35-129) units/L Total Protein 6.6 5.2 L D (6.3-8.2) g/dL Albumin 4.0 3.0 L (3.9-5) g/dL - Imaging CT scan - abdomen: report reviewed, image reviewed CT scan - pelvis: report reviewed, image reviewed Assessment and Plan 43 yo M with 1. RUQ pain 2. abnormal gallbladder on imaging 3. Hep C 4. transaminitis and hyperbilirubinemia 5. thrombocytopenia 6. leukopenia ?sepsis Patient's labs indicative of acute liver failure. Meld score 26 and Child Vences C. Gallbladder edema/fluid may be secondary to acute liver issue. No stones seen in the gallbladder on imaging. 1. GI consult pending - discussed with GI team 2. may start liquid diet if no procedures or additional imaging requested by GI 3. Hep panel 4. prn pain control 5. IVF 6. Trend LFTS 7. empiric abx, bl and urine cx 8. If LFTs do not improve, will likely need referral to hepatobiliary surgery. Would not recommend cholecystectomy at this time. Thank you, please call with questions.
[2019-06-29] MEDS: HYDROmorphone 1 MG/1 ML INJ IV PRN ×3 (11:29→22:13)
--- NOTE | 2019-06-29 11:45 | Gastroenterology Consultation ---
<VIOLET MARTINI - Last Filed: 06/29/19 12:32> History of Present Illness - Reason for Consult Consult date: 06/29/19 liver failure Requesting physician: ONIEL WATTS - History of Present Illness Patient is a 43 y/o male with PMH of Hepatitis C who presented to ED with c/o RUQ abdominal pain with associated N/V and weakness x4 days. Upon admission, LFTs noted to be elevated with GI consulted for evaluation of liver failure. Abd CT and abd ultrasound showed gallbadder wall thickening/edema (acute cholecystitis?) but no biliary ductal dilatation. Surgery following. This morning patient was resting in bed w/o acute distress but ill appearing and family at bedside. Reports being told he had Hepatitis C a few years ago but no known cirrhosis. Denies taking new medications, tylenol, ETOH abuse, or IV drug use. +tattoos. Family hx of liver disease also due to HCV. No recent foreign travel, ingestion of food/water from new or different sources, or known ill contacts. No f/c, CP, SOB, or signs of bleeding. Past History Past Medical History: hepatitis (chronic hepatitis C) Past Surgical History: No surgical history Social history: smoking (1 PPD). denies: alcohol abuse, IV drug use Family history: diabetes, hypertension Medications and Allergies Allergies Allergy/AdvReac Type Severity Reaction Status Date / Time No Known Allergies Allergy Unverified 05/27/14 19:39 Home Medications Medication Instructions Recorded Confirmed Last Taken Type No Known Home Medications [No 06/29/19 06/29/19 Unknown History Reported Home Medications] Active Meds: Active Medications Acetaminophen (Tylenol) 650 mg PO Q4H PRN PRN Reason: Pain MILD(1-3)/Fever >100.5/VENCES Hydromorphone HCl (Dilaudid) 0.5 mg IV Q3H PRN PRN Reason: Pain , Severe (7-10) Last Admin: 06/29/19 11:29 Dose: 0.5 mg Documented by: Sodium Chloride (Nacl 0.9% 1000 Ml) 1,000 mls @ 100 mls/hr IV DIRECT JV Last Admin: 06/29/19 03:35 Dose: 100 mls/hr Documented by: Piperacillin Sod/Tazobactam Sod (Zosyn/Ns 4.5gm/100ml) 4.5 gm in 100 mls @ 200 mls/hr IV Q8HR [facility]; Protocol Last Admin: 06/29/19 06:19 Dose: 200 mls/hr Documented by: Ondansetron HCl (Zofran) 4 mg IV Q8H PRN PRN Reason: Nausea And Vomiting Sodium Chloride (Sodium Chloride Flush Syringe 10 Ml) 10 ml IV BID [facility] Last Admin: 06/29/19 11:29 Dose: 10 ml Documented by: Sodium Chloride (Sodium Chloride Flush Syringe 10 Ml) 10 ml IV PRN PRN PRN Reason: LINE FLUSH medications reviewed/updated as required Review of Systems - Review of Systems All systems: negative Constitutional: weakness Gastrointestinal: abdominal pain (RUQ), nausea, vomiting Exam - Constitutional Vital Signs: Temp Pulse Resp BP Pulse Ox 98.1 F 75 18 113/64 97 06/29/19 07:25 06/29/19 07:25 06/29/19 07:25 06/29/19 07:25 06/29/19 07:25 General appearance: no acute distress, other (ill appearing) - EENT Eyes: PERRL, EOM intact, scleral icterus - Respiratory Respiratory effort: normal Respiratory: bilateral: CTA - Cardiovascular Rhythm: regular - Gastrointestinal General gastrointestinal: Present: soft, tender (RUQ), non-distended, normal bowel sounds - Integumentary Integumentary: Present: warm, dry, jaundice - Neurologic Neurological: alert and oriented x3 - Labs CBC & Chem 7: 06/29/19 06:08 06/29/19 06:08 Lab Results: Laboratory Results - last 24 hr 06/28/19 06/28/19 06/28/19 18:44 18:56 18:56 WBC 3.2 L RBC 4.98 Hgb 14.5 Hct 41.7 MCV 84 MCH 29 MCHC 35 H RDW 14.7 Plt Count 90 L Lymph % (Auto) 4.5 L [place] % (Auto) 8.0 H Eos % (Auto) 2.5 Baso % (Auto) 0.3 Lymph # 0.1 L [place] # 0.3 Eos # 0.1 Baso # 0.0 Add Manual Diff Total Counted Seg Neutrophils % 84.7 H Seg Neuts % (Manual) Band Neutrophils % Lymphocytes % (Manual) Reactive Lymphs % (Man) Monocytes % (Manual) Eosinophils % (Manual) Basophils % (Manual) Metamyelocytes % Myelocytes % Promyelocytes % Blast Cells % Nucleated RBC % Seg Neutrophils # 2.7 Seg Neutrophils # Man Band Neutrophils # Lymphocytes # (Manual) Abs React Lymphs (Man) Monocytes # (Manual) Eosinophils # (Manual) Basophils # (Manual) Metamyelocytes # Myelocytes # Promyelocytes # Blast Cells # WBC Morphology Hypersegmented Neuts Hyposegmented Neuts Hypogranular Neuts Smudge Cells Toxic Granulation Toxic Vacuolation Dohle Bodies Pelger-Huet Anomaly [place] Rods Platelet Estimate Clumped Platelets Plt Clumps, EDTA Large Platelets Giant Platelets Platelet Satelliting Plt Morphology Comment RBC Morphology Dimorphic RBCs Polychromasia Hypochromasia Poikilocytosis Anisocytosis Microcytosis Macrocytosis Spherocytes Pappenheimer Bodies Sickle Cells Target Cells Tear Drop Cells Ovalocytes Helmet Cells [place] Bodies [place] Rings [place] Cells Bite Cells Crenated Cell Elliptocytes Acanthocytes (Spur) Rouleaux Hemoglobin C Crystals Schistocytes Malaria parasites Andrea Bodies Hem Pathologist Commnt PT INR APTT Sodium 134 L Potassium 4.5 Chloride 94.3 L Carbon Dioxide 24 Anion Gap 20 BUN 20 Creatinine 0.7 L Estimated GFR > 60 BUN/Creatinine Ratio 29 Glucose 113 H Lactic Acid Calcium 9.0 Magnesium Total Bilirubin 8.60 H Direct Bilirubin Indirect Bilirubin AST 4506 H ALT 3664 H Alkaline Phosphatase 268 H Ammonia Total Creatine Kinase Total Protein 6.6 Albumin 4.0 Albumin/Globulin Ratio 1.5 Lipase 7 L Urine Color Alisson Urine Turbidity Slightly-cloudy Urine pH 5.0 Ur Specific [place] 1.034 H Urine Protein 100 mg/dl Urine Glucose (UA) Neg Urine Ketones Neg Urine Blood Sm Urine Nitrite Neg Urine Bilirubin Mod Urine Ictotest Positive Urine Urobilinogen 4.0 Ur Leukocyte Esterase Neg Urine WBC (Auto) 7.0 H Urine RBC (Auto) 4.0 U Epithel Cells (Auto) 1.0 Urine Bacteria (Auto) 1+ Urine Mucus 2+ Urine Yeast (Budding) 2+ Salicylates Acetaminophen Plasma/Serum Alcohol 06/28/19 06/28/19 06/28/19 21:56 21:56 21:56 WBC RBC Hgb Hct MCV MCH MCHC RDW Plt Count Lymph % (Auto) [place] % (Auto) Eos % (Auto) Baso % (Auto) Lymph # [place] # Eos # Baso # Add Manual Diff Total Counted Seg Neutrophils % Seg Neuts % (Manual) Band Neutrophils % Lymphocytes % (Manual) Reactive Lymphs % (Man) Monocytes % (Manual) Eosinophils % (Manual) Basophils % (Manual) Metamyelocytes % Myelocytes % Promyelocytes % Blast Cells % Nucleated RBC % Seg Neutrophils # Seg Neutrophils # Man Band Neutrophils # Lymphocytes # (Manual) Abs React Lymphs (Man) Monocytes # (Manual) Eosinophils # (Manual) Basophils # (Manual) Metamyelocytes # Myelocytes # Promyelocytes # Blast Cells # WBC Morphology Hypersegmented Neuts Hyposegmented Neuts Hypogranular Neuts Smudge Cells Toxic Granulation Toxic Vacuolation Dohle Bodies Pelger-Huet Anomaly [place] Rods Platelet Estimate Clumped Platelets Plt Clumps, EDTA Large Platelets Giant Platelets Platelet Satelliting Plt Morphology Comment RBC Morphology Dimorphic RBCs Polychromasia Hypochromasia Poikilocytosis Anisocytosis Microcytosis Macrocytosis Spherocytes Pappenheimer Bodies Sickle Cells Target Cells Tear Drop Cells Ovalocytes Helmet Cells [place] Bodies [place] Rings [place] Cells Bite Cells Crenated Cell Elliptocytes Acanthocytes (Spur) Rouleaux Hemoglobin C Crystals Schistocytes Malaria parasites Andrea Bodies Hem Pathologist Commnt PT 25.2 H INR 2.34 H APTT 46.6 H Sodium Potassium Chloride Carbon Dioxide Anion Gap BUN Creatinine Estimated GFR BUN/Creatinine Ratio Glucose Lactic Acid 1.00 Calcium Magnesium 0.70 L* Total Bilirubin 3.30 H Direct Bilirubin 3.2 H Indirect Bilirubin 0.1 AST ALT Alkaline Phosphatase Ammonia Total Creatine Kinase 13 L Total Protein Albumin Albumin/Globulin Ratio Lipase Urine Color Urine Turbidity Urine pH Ur Specific [place] Urine Protein Urine Glucose (UA) Urine Ketones Urine Blood Urine Nitrite Urine Bilirubin Urine Ictotest Urine Urobilinogen Ur Leukocyte Esterase Urine WBC (Auto) Urine RBC (Auto) U Epithel Cells (Auto) Urine Bacteria (Auto) Urine Mucus Urine Yeast (Budding) Salicylates Acetaminophen Plasma/Serum Alcohol 06/28/19 06/28/19 06/28/19 21:56 21:56 21:56 WBC RBC Hgb Hct MCV MCH MCHC RDW Plt Count Lymph % (Auto) [place] % (Auto) Eos % (Auto) Baso % (Auto) Lymph # [place] # Eos # Baso # Add Manual Diff Total Counted Seg Neutrophils % Seg Neuts % (Manual) Band Neutrophils % Lymphocytes % (Manual) Reactive Lymphs % (Man) Monocytes % (Manual) Eosinophils % (Manual) Basophils % (Manual) Metamyelocytes % Myelocytes % Promyelocytes % Blast Cells % Nucleated RBC % Seg Neutrophils # Seg Neutrophils # Man Band Neutrophils # Lymphocytes # (Manual) Abs React Lymphs (Man) Monocytes # (Manual) Eosinophils # (Manual) Basophils # (Manual) Metamyelocytes # Myelocytes # Promyelocytes # Blast Cells # WBC Morphology Hypersegmented Neuts Hyposegmented Neuts Hypogranular Neuts Smudge Cells Toxic Granulation Toxic Vacuolation Dohle Bodies Pelger-Huet Anomaly Lyle Rods Platelet Estimate Clumped Platelets Plt Clumps, EDTA Large Platelets Giant Platelets Platelet Satelliting Plt Morphology Comment RBC Morphology Dimorphic RBCs Polychromasia Hypochromasia Poikilocytosis Anisocytosis Microcytosis Macrocytosis Spherocytes Pappenheimer Bodies Sickle Cells Target Cells Tear Drop Cells Ovalocytes Helmet Cells [place] Bodies [place] Rings [place] Cells Bite Cells Crenated Cell Elliptocytes Acanthocytes (Spur) Rouleaux Hemoglobin C Crystals Schistocytes Malaria parasites Andrea Bodies Hem Pathologist Commnt PT INR APTT Sodium Potassium Chloride Carbon Dioxide Anion Gap BUN Creatinine Estimated GFR BUN/Creatinine Ratio Glucose Lactic Acid Calcium Magnesium Total Bilirubin Direct Bilirubin Indirect Bilirubin AST ALT Alkaline Phosphatase Ammonia 19.0 L Total Creatine Kinase Total Protein Albumin Albumin/Globulin Ratio Lipase Urine Color Urine Turbidity Urine pH Ur Specific [place] Urine Protein Urine Glucose (UA) Urine Ketones Urine Blood Urine Nitrite Urine Bilirubin Urine Ictotest Urine Urobilinogen Ur Leukocyte Esterase Urine WBC (Auto) Urine RBC (Auto) U Epithel Cells (Auto) Urine Bacteria (Auto) Urine Mucus Urine Yeast (Budding) Salicylates < 0.3 L Acetaminophen < 5.0 L Plasma/Serum Alcohol 06/28/19 06/29/19 06/29/19 21:56 06:08 06:08 WBC 1.8 L* RBC 4.45 Hgb 12.8 Hct 37.1 MCV 84 MCH 29 MCHC 34 RDW 14.5 Plt Count 66 L Lymph % (Auto) [place] % (Auto) Eos % (Auto) Baso % (Auto) Lymph # [place] # Eos # Baso # Add Manual Diff Complete Total Counted 100 Seg Neutrophils % Seg Neuts % (Manual) 57.0 Band Neutrophils % 30.0 Lymphocytes % (Manual) 6.0 L Reactive Lymphs % (Man) 0 Monocytes % (Manual) 2.0 Eosinophils % (Manual) 5.0 H Basophils % (Manual) 0 Metamyelocytes % 0 Myelocytes % 0 Promyelocytes % 0 Blast Cells % 0 Nucleated RBC % Not Reportable Seg Neutrophils # Seg Neutrophils # Man 1.0 L Band Neutrophils # 0.5 Lymphocytes # (Manual) 0.1 L Abs React Lymphs (Man) 0.0 Monocytes # (Manual) 0.0 Eosinophils # (Manual) 0.1 Basophils # (Manual) 0.0 Metamyelocytes # 0.0 Myelocytes # 0.0 Promyelocytes # 0.0 Blast Cells # 0.0 WBC Morphology Not Reportable Hypersegmented Neuts Not Reportable Hyposegmented Neuts Not Reportable Hypogranular Neuts Not Reportable Smudge Cells Not Reportable Toxic Granulation Not Reportable Toxic Vacuolation Not Reportable Dohle Bodies Not Reportable Pelger-Huet Anomaly Not Reportable Lyle Rods Not Reportable Platelet Estimate Consistent w auto Clumped Platelets Not Reportable Plt Clumps, EDTA Not Reportable Large Platelets Not Reportable Giant Platelets Not Reportable Platelet Satelliting Not Reportable Plt Morphology Comment Not Reportable RBC Morphology Not Reportable Dimorphic RBCs Not Reportable Polychromasia Not Reportable Hypochromasia Not Reportable Poikilocytosis Not Reportable Anisocytosis Not Reportable Microcytosis Not Reportable Macrocytosis Not Reportable Spherocytes Not Reportable Pappenheimer Bodies Not Reportable Sickle Cells Not Reportable Target Cells Not Reportable Tear Drop Cells Not Reportable Ovalocytes 1+ Helmet Cells Not Reportable [place] Bodies Not Reportable [place] Rings Not Reportable [place] Cells Few Bite Cells Not Reportable Crenated Cell Not Reportable Elliptocytes Not Reportable Acanthocytes (Spur) Not Reportable Rouleaux Not Reportable Hemoglobin C Crystals Not Reportable Schistocytes Not Reportable Malaria parasites Not Reportable Andrea Bodies Not Reportable Hem Pathologist Commnt No PT INR APTT Sodium 134 L Potassium 4.0 Chloride 99.6 Carbon Dioxide 21 L Anion Gap 17 BUN 16 Creatinine 0.5 L Estimated GFR > 60 BUN/Creatinine Ratio 32 Glucose 76 Lactic Acid Calcium 8.0 L Magnesium Total Bilirubin 8.80 H Direct Bilirubin Indirect Bilirubin AST 7964 H ALT 5452 H Alkaline Phosphatase 226 H Ammonia Total Creatine Kinase Total Protein 5.2 L D Albumin 3.0 L Albumin/Globulin Ratio 1.4 Lipase Urine Color Urine Turbidity Urine pH Ur Specific [place] Urine Protein Urine Glucose (UA) Urine Ketones Urine Blood Urine Nitrite Urine Bilirubin Urine Ictotest Urine Urobilinogen Ur Leukocyte Esterase Urine WBC (Auto) Urine RBC (Auto) U Epithel Cells (Auto) Urine Bacteria (Auto) Urine Mucus Urine Yeast (Budding) Salicylates Acetaminophen Plasma/Serum Alcohol < 0.01 Assessment and Plan 1.elevated LFTs/liver failure? 2.H/o chronic hepatitis C -afebrile -WBC 1.8 -H/H WNL -plt 66, INR 2.34 -lipase and ammonia WNL -LFTs-[place] 8.80, AST 7864, ALT 5452, alk phos 226 -acetaminophen level negative -abd CT and ultrasound showed wall thickening/edema of gallbladder but no biliary ductal dilatation -surgery following -etiology-likely acute liver injury on chronic liver disease -MR/MRCP for further evaluation -stat repeat INR/hepatic panel along with other labs to r/o other causes (acute hepatitis panel, AYDEN, ceruloplasmin, HSV, flu, etc.) -If INR continues to trend up, give vit K challenge -continue antibiotics -avoid hepatotoxic agents -continue supportive care-low threshold to transfer to ICU for closer monitoring -will follow <JONAH GANN - Last Filed: 06/29/19 17:32> Medications and Allergies Active Meds: Active Medications Acetaminophen (Tylenol) 650 mg PO Q4H PRN PRN Reason: Pain MILD(1-3)/Fever >100.5/VENCES Hydromorphone HCl (Dilaudid) 0.5 mg IV Q3H PRN PRN Reason: Pain , Severe (7-10) Last Admin: 06/29/19 16:52 Dose: 0.5 mg Documented by: Sodium Chloride (Nacl 0.9% 1000 Ml) 1,000 mls @ 100 mls/hr IV DIRECT JV Last Admin: 06/29/19 03:35 Dose: 100 mls/hr Documented by: Piperacillin Sod/Tazobactam Sod (Zosyn/Ns 4.5gm/100ml) 4.5 gm in 100 mls @ 200 mls/hr IV Q8HR [facility]; Protocol Last Admin: 06/29/19 14:49 Dose: Not Given Documented by: Ondansetron HCl (Zofran) 4 mg IV Q8H PRN PRN Reason: Nausea And Vomiting Sodium Chloride (Sodium Chloride Flush Syringe 10 Ml) 10 ml IV BID [facility] Last Admin: 06/29/19 11:29 Dose: 10 ml Documented by: Sodium Chloride (Sodium Chloride Flush Syringe 10 Ml) 10 ml IV PRN PRN PRN Reason: LINE FLUSH Exam - Constitutional Vital Signs: Temp Pulse Resp BP Pulse Ox 97.8 F 67 18 138/80 97 06/29/19 12:54 06/29/19 12:54 06/29/19 12:54 06/29/19 12:54 06/29/19 12:54 - Labs CBC & Chem 7: 06/29/19 06:08 06/29/19 06:08 Lab Results: Laboratory Results - last 24 hr 06/28/19 06/28/19 06/28/19 18:44 18:56 18:56 WBC 3.2 L RBC 4.98 Hgb 14.5 Hct 41.7 MCV 84 MCH 29 MCHC 35 H RDW 14.7 Plt Count 90 L Lymph % (Auto) 4.5 L [place] % (Auto) 8.0 H Eos % (Auto) 2.5 Baso % (Auto) 0.3 Lymph # 0.1 L [place] # 0.3 Eos # 0.1 Baso # 0.0 Add Manual Diff Total Counted Seg Neutrophils % 84.7 H Seg Neuts % (Manual) Band Neutrophils % Lymphocytes % (Manual) Reactive Lymphs % (Man) Monocytes % (Manual) Eosinophils % (Manual) Basophils % (Manual) Metamyelocytes % Myelocytes % Promyelocytes % Blast Cells % Nucleated RBC % Seg Neutrophils # 2.7 Seg Neutrophils # Man Band Neutrophils # Lymphocytes # (Manual) Abs React Lymphs (Man) Monocytes # (Manual) Eosinophils # (Manual) Basophils # (Manual) Metamyelocytes # Myelocytes # Promyelocytes # Blast Cells # WBC Morphology Hypersegmented Neuts Hyposegmented Neuts Hypogranular Neuts Smudge Cells Toxic Granulation Toxic Vacuolation Dohle Bodies Pelger-Huet Anomaly [place] Rods Platelet Estimate Clumped Platelets Plt Clumps, EDTA Large Platelets Giant Platelets Platelet Satelliting Plt Morphology Comment RBC Morphology Dimorphic RBCs Polychromasia Hypochromasia Poikilocytosis Anisocytosis Microcytosis Macrocytosis Spherocytes Pappenheimer Bodies Sickle Cells Target Cells Tear Drop Cells Ovalocytes Helmet Cells [place] Bodies [place] Rings [place] Cells Bite Cells Crenated Cell Elliptocytes Acanthocytes (Spur) Rouleaux Hemoglobin C Crystals Schistocytes Malaria parasites Andrea Bodies Hem Pathologist Commnt PT INR APTT Sodium 134 L Potassium 4.5 Chloride 94.3 L Carbon Dioxide 24 Anion Gap 20 BUN 20 Creatinine 0.7 L Estimated GFR > 60 BUN/Creatinine Ratio 29 Glucose 113 H Lactic Acid Calcium 9.0 Magnesium Total Bilirubin 8.60 H Direct Bilirubin Indirect Bilirubin AST 4506 H ALT 3664 H Alkaline Phosphatase 268 H Ammonia Total Creatine Kinase Total Protein 6.6 Albumin 4.0 Albumin/Globulin Ratio 1.5 Lipase 7 L Urine Color [place]isson Urine Turbidity Slightly-cloudy Urine pH 5.0 Ur Specific [place] 1.034 H Urine Protein 100 mg/dl Urine Glucose (UA) Neg Urine Ketones Neg Urine Blood Sm Urine Nitrite Neg Urine Bilirubin Mod Urine Ictotest Positive Urine Urobilinogen 4.0 Ur Leukocyte Esterase Neg Urine WBC (Auto) 7.0 H Urine RBC (Auto) 4.0 U Epithel Cells (Auto) 1.0 Urine Bacteria (Auto) 1+ Urine Mucus 2+ Urine Yeast (Budding) 2+ Salicylates Acetaminophen Plasma/Serum Alcohol Hepatitis A IgM Ab Hep Bs Antigen Hep B Core IgM Ab Hepatitis C Antibody 06/28/19 06/28/19 06/28/19 21:56 21:56 21:56 WBC RBC Hgb Hct MCV MCH MCHC RDW Plt Count Lymph % (Auto) [place] % (Auto) Eos % (Auto) Baso % (Auto) Lymph # [place] # Eos # Baso # Add Manual Diff Total Counted Seg Neutrophils % Seg Neuts % (Manual) Band Neutrophils % Lymphocytes % (Manual) Reactive Lymphs % (Man) Monocytes % (Manual) Eosinophils % (Manual) Basophils % (Manual) Metamyelocytes % Myelocytes % Promyelocytes % Blast Cells % Nucleated RBC % Seg Neutrophils # Seg Neutrophils # Man Band Neutrophils # Lymphocytes # (Manual) Abs React Lymphs (Man) Monocytes # (Manual) Eosinophils # (Manual) Basophils # (Manual) Metamyelocytes # Myelocytes # Promyelocytes # Blast Cells # WBC Morphology Hypersegmented Neuts Hyposegmented Neuts Hypogranular Neuts Smudge Cells Toxic Granulation Toxic Vacuolation Dohle Bodies Pelger-Huet Anomaly [place] Rods Platelet Estimate Clumped Platelets Plt Clumps, EDTA Large Platelets Giant Platelets Platelet Satelliting Plt Morphology Comment RBC Morphology Dimorphic RBCs Polychromasia Hypochromasia Poikilocytosis Anisocytosis Microcytosis Macrocytosis Spherocytes Pappenheimer Bodies Sickle Cells Target Cells Tear Drop Cells Ovalocytes Helmet Cells [place] Bodies [place] Rings [place] Cells Bite Cells Crenated Cell Elliptocytes Acanthocytes (Spur) Rouleaux Hemoglobin C Crystals Schistocytes Malaria parasites Andrea Bodies Hem Pathologist Commnt PT 25.2 H INR 2.34 H APTT 46.6 H Sodium Potassium Chloride Carbon Dioxide Anion Gap BUN Creatinine Estimated GFR BUN/Creatinine Ratio Glucose Lactic Acid 1.00 Calcium Magnesium 0.70 L* Total Bilirubin 3.30 H Direct Bilirubin 3.2 H Indirect Bilirubin 0.1 AST ALT Alkaline Phosphatase Ammonia Total Creatine Kinase 13 L Total Protein Albumin Albumin/Globulin Ratio Lipase Urine Color Urine Turbidity Urine pH Ur Specific [place] Urine Protein Urine Glucose (UA) Urine Ketones Urine Blood Urine Nitrite Urine Bilirubin Urine Ictotest Urine Urobilinogen Ur Leukocyte Esterase Urine WBC (Auto) Urine RBC (Auto) U Epithel Cells (Auto) Urine Bacteria (Auto) Urine Mucus Urine Yeast (Budding) Salicylates Acetaminophen Plasma/Serum Alcohol Hepatitis A IgM Ab Hep Bs Antigen Hep B Core IgM Ab Hepatitis C Antibody 06/28/19 06/28/19 06/28/19 21:56 21:56 21:56 WBC RBC Hgb Hct MCV MCH MCHC RDW Plt Count Lymph % (Auto) [place] % (Auto) Eos % (Auto) Baso % (Auto) Lymph # [place] # Eos # Baso # Add Manual Diff Total Counted Seg Neutrophils % Seg Neuts % (Manual) Band Neutrophils % Lymphocytes % (Manual) Reactive Lymphs % (Man) Monocytes % (Manual) Eosinophils % (Manual) Basophils % (Manual) Metamyelocytes % Myelocytes % Promyelocytes % Blast Cells % Nucleated RBC % Seg Neutrophils # Seg Neutrophils # Man Band Neutrophils # Lymphocytes # (Manual) Abs React Lymphs (Man) Monocytes # (Manual) Eosinophils # (Manual) Basophils # (Manual) Metamyelocytes # Myelocytes # Promyelocytes # Blast Cells # WBC Morphology Hypersegmented Neuts Hyposegmented Neuts Hypogranular Neuts Smudge Cells Toxic Granulation Toxic Vacuolation Dohle Bodies Pelger-Huet Anomaly Lyle Rods Platelet Estimate Clumped Platelets Plt Clumps, EDTA Large Platelets Giant Platelets Platelet Satelliting Plt Morphology Comment RBC Morphology Dimorphic RBCs Polychromasia Hypochromasia Poikilocytosis Anisocytosis Microcytosis Macrocytosis Spherocytes Pappenheimer Bodies Sickle Cells Target Cells Tear Drop Cells Ovalocytes Helmet Cells [place] Bodies [place] Rings [place] Cells Bite Cells Crenated Cell Elliptocytes Acanthocytes (Spur) Rouleaux Hemoglobin C Crystals Schistocytes Malaria parasites Andrea Bodies Hem Pathologist Commnt PT INR APTT Sodium Potassium Chloride Carbon Dioxide Anion Gap BUN Creatinine Estimated GFR BUN/Creatinine Ratio Glucose Lactic Acid Calcium Magnesium Total Bilirubin Direct Bilirubin Indirect Bilirubin AST ALT Alkaline Phosphatase Ammonia 19.0 L Total Creatine Kinase Total Protein Albumin Albumin/Globulin Ratio Lipase Urine Color Urine Turbidity Urine pH Ur Specific [place] Urine Protein Urine Glucose (UA) Urine Ketones Urine Blood Urine Nitrite Urine Bilirubin Urine Ictotest Urine Urobilinogen Ur Leukocyte Esterase Urine WBC (Auto) Urine RBC (Auto) U Epithel Cells (Auto) Urine Bacteria (Auto) Urine Mucus Urine Yeast (Budding) Salicylates < 0.3 L Acetaminophen < 5.0 L Plasma/Serum Alcohol Hepatitis A IgM Ab Hep Bs Antigen Hep B Core IgM Ab Hepatitis C Antibody 06/28/19 06/29/19 06/29/19 21:56 06:08 06:08 WBC 1.8 L* RBC 4.45 Hgb 12.8 Hct 37.1 MCV 84 MCH 29 MCHC 34 RDW 14.5 Plt Count 66 L Lymph % (Auto) [place] % (Auto) Eos % (Auto) Baso % (Auto) Lymph # [place] # Eos # Baso # Add Manual Diff Complete Total Counted 100 Seg Neutrophils % Seg Neuts % (Manual) 57.0 Band Neutrophils % 30.0 Lymphocytes % (Manual) 6.0 L Reactive Lymphs % (Man) 0 Monocytes % (Manual) 2.0 Eosinophils % (Manual) 5.0 H Basophils % (Manual) 0 Metamyelocytes % 0 Myelocytes % 0 Promyelocytes % 0 Blast Cells % 0 Nucleated RBC % Not Reportable Seg Neutrophils # Seg Neutrophils # Man 1.0 L Band Neutrophils # 0.5 Lymphocytes # (Manual) 0.1 L Abs React Lymphs (Man) 0.0 Monocytes # (Manual) 0.0 Eosinophils # (Manual) 0.1 Basophils # (Manual) 0.0 Metamyelocytes # 0.0 Myelocytes # 0.0 Promyelocytes # 0.0 Blast Cells # 0.0 WBC Morphology Not Reportable Hypersegmented Neuts Not Reportable Hyposegmented Neuts Not Reportable Hypogranular Neuts Not Reportable Smudge Cells Not Reportable Toxic Granulation Not Reportable Toxic Vacuolation Not Reportable Dohle Bodies Not Reportable Pelger-Huet Anomaly Not Reportable Lyle Rods Not Reportable Platelet Estimate Consistent w auto Clumped Platelets Not Reportable Plt Clumps, EDTA Not Reportable Large Platelets Not Reportable Giant Platelets Not Reportable Platelet Satelliting Not Reportable Plt Morphology Comment Not Reportable RBC Morphology Not Reportable Dimorphic RBCs Not Reportable Polychromasia Not Reportable Hypochromasia Not Reportable Poikilocytosis Not Reportable Anisocytosis Not Reportable Microcytosis Not Reportable Macrocytosis Not Reportable Spherocytes Not Reportable Pappenheimer Bodies Not Reportable Sickle Cells Not Reportable Target Cells Not Reportable Tear Drop Cells Not Reportable Ovalocytes 1+ Helmet Cells Not Reportable [place] Bodies Not Reportable [place] Rings Not Reportable [place] Cells Few Bite Cells Not Reportable Crenated Cell Not Reportable Elliptocytes Not Reportable Acanthocytes (Spur) Not Reportable Rouleaux Not Reportable Hemoglobin C Crystals Not Reportable Schistocytes Not Reportable Malaria parasites Not Reportable Andrea Bodies Not Reportable Hem Pathologist Commnt No PT INR APTT Sodium 134 L Potassium 4.0 Chloride 99.6 Carbon Dioxide 21 L Anion Gap 17 BUN 16 Creatinine 0.5 L Estimated GFR > 60 BUN/Creatinine Ratio 32 Glucose 76 Lactic Acid Calcium 8.0 L Magnesium Total Bilirubin 8.80 H Direct Bilirubin Indirect Bilirubin AST 7964 H ALT 5452 H Alkaline Phosphatase 226 H Ammonia Total Creatine Kinase Total Protein 5.2 L D Albumin 3.0 L Albumin/Globulin Ratio 1.4 Lipase Urine Color Urine Turbidity Urine pH Ur Specific [place] Urine Protein Urine Glucose (UA) Urine Ketones Urine Blood Urine Nitrite Urine Bilirubin Urine Ictotest Urine Urobilinogen Ur Leukocyte Esterase Urine WBC (Auto) Urine RBC (Auto) U Epithel Cells (Auto) Urine Bacteria (Auto) Urine Mucus Urine Yeast (Budding) Salicylates Acetaminophen Plasma/Serum Alcohol < 0.01 Hepatitis A IgM Ab Hep Bs Antigen Hep B Core IgM Ab Hepatitis C Antibody 06/29/19 06/29/19 06/29/19 13:28 13:28 13:28 WBC RBC Hgb Hct MCV MCH MCHC RDW Plt Count Lymph % (Auto) [place] % (Auto) Eos % (Auto) Baso % (Auto) Lymph # [place] # Eos # Baso # Add Manual Diff Total Counted Seg Neutrophils % Seg Neuts % (Manual) Band Neutrophils % Lymphocytes % (Manual) Reactive Lymphs % (Man) Monocytes % (Manual) Eosinophils % (Manual) Basophils % (Manual) Metamyelocytes % Myelocytes % Promyelocytes % Blast Cells % Nucleated RBC % Seg Neutrophils # Seg Neutrophils # Man Band Neutrophils # Lymphocytes # (Manual) Abs React Lymphs (Man) Monocytes # (Manual) Eosinophils # (Manual) Basophils # (Manual) Metamyelocytes # Myelocytes # Promyelocytes # Blast Cells # WBC Morphology Hypersegmented Neuts Hyposegmented Neuts Hypogranular Neuts Smudge Cells Toxic Granulation Toxic Vacuolation Dohle Bodies Pelger-Huet Anomaly Lyle Rods Platelet Estimate Clumped Platelets Plt Clumps, EDTA Large Platelets Giant Platelets Platelet Satelliting Plt Morphology Comment RBC Morphology Dimorphic RBCs Polychromasia Hypochromasia Poikilocytosis Anisocytosis Microcytosis Macrocytosis Spherocytes Pappenheimer Bodies Sickle Cells Target Cells Tear Drop Cells Ovalocytes Helmet Cells [place] Bodies [place] Rings [place] Cells Bite Cells Crenated Cell Elliptocytes Acanthocytes (Spur) Rouleaux Hemoglobin C Crystals Schistocytes Malaria parasites Andrea Bodies Hem Pathologist Commnt PT 21.1 H INR 1.86 H APTT Sodium Potassium Chloride Carbon Dioxide Anion Gap BUN Creatinine Estimated GFR BUN/Creatinine Ratio Glucose Lactic Acid Calcium Magnesium Total Bilirubin 10.20 H Direct Bilirubin 8.8 H Indirect Bilirubin 1.4 AST 23440 H ALT 6937 H Alkaline Phosphatase 254 H Ammonia Total Creatine Kinase Total Protein 5.3 L Albumin 3.1 L Albumin/Globulin Ratio 1.4 Lipase Urine Color Urine Turbidity Urine pH Ur Specific [place] Urine Protein Urine Glucose (UA) Urine Ketones Urine Blood Urine Nitrite Urine Bilirubin Urine Ictotest Urine Urobilinogen Ur Leukocyte Esterase Urine WBC (Auto) Urine RBC (Auto) U Epithel Cells (Auto) Urine Bacteria (Auto) Urine Mucus Urine Yeast (Budding) Salicylates Acetaminophen Plasma/Serum Alcohol Hepatitis A IgM Ab Non-reactive Hep Bs Antigen Non-reactive Hep B Core IgM Ab Non-reactive Hepatitis C Antibody Reactive A Assessment and Plan Patient seen and examined; agree with note above. Patient presenting with acute liver injury (mental status stable without encephalopathy and normal ammonia, so currently without signs of acute liver failure). Underlying chronic liver disease 2/2 hep c with no obvious cirrhosis. Unclear enticing event for acute on chronic liver injury. The degree of elevation suggests possible ischemic hepatitis/shock liver (? hypotensive prior to arrival due to n/v), vs toxic/medication induced (denies tyleno use), vs viral/rule out acute hep b. recommend ICU monitoring if any change in mental status. MRCP to r/o obstructive process. empiric abx and trend labs and continue supportive care. Unfortunately pt does not have insurance so transfer to tertiary center/transplant hospital may not be feasible.
--- NOTE | 2019-06-29 12:39 | Progress Note ---
Assessment and Plan Assessment and plan: SIRS evidenced by wbc:3.2k, HR:>90, POA -exact source of infection unknown -possibility include UTI -blood and urine cultures pending RUQ with abnormal gallbladder on imaging -?acute cholecystitis -abd CT and ultrasound showed wall thickening/edema of gallbladder but no biliary ductal dilatation -surgery do not recommend immediate cholecystectomy -IVF and PRN narcotics for pain control Abnormal LFT -etiology, likely acute liver injury on chronic liver disease -avoid hepatotoxic agents -GI consulted and recommendations include: -MR/MRCP for further evaluation -repeat INR/hepatic panel along with other labs to r/o other causes (acute hepatitis panel, AYDEN, ceruloplasmin, HSV, flu, etc.) Chronic Hep C virus inf -will follow labs above -GI consulted, appreciate Thrombocytopenia/leukopenia -likely 2/2 CLD v acute infection Hyponatremia, likely chronic -stable Disp: condition guarded. d/c per clinical course History Interval history: Pt reports upper abdominal pain not controlled on morphine. No vomiting Hospitalist Physical - Constitutional Vitals: Temp Pulse Resp BP Pulse Ox 98.1 F 75 18 113/64 97 06/29/19 07:25 06/29/19 07:25 06/29/19 07:25 06/29/19 07:25 06/29/19 07:25 General appearance: Present: no acute distress - EENT Eyes: Present: PERRL, EOM intact ENT: hearing intact, clear oral mucosa - Neck Neck: Present: normal ROM - Respiratory Respiratory effort: normal Respiratory: bilateral: CTA - Extremities Extremities: No edema - Abdominal General gastrointestinal: soft, tender (RUQ and epigastric), normal bowel sounds - Integumentary Integumentary: Present: warm, dry - Psychiatric Psychiatric: appropriate mood/affect - Neurologic Neurologic: CNII-XII intact Results - Labs CBC & Chem 7: 06/29/19 06:08 06/29/19 06:08 Labs: Laboratory Last Values WBC 1.8 K/mm3 (4.5-11.0) L* 06/29/19 06:08 RBC 4.45 M/mm3 (3.65-5.03) 06/29/19 06:08 Hgb 12.8 gm/dl (11.8-15.2) 06/29/19 06:08 Hct 37.1 % (35.5-45.6) 06/29/19 06:08 MCV 84 fl (84-94) 06/29/19 06:08 MCH 29 pg (28-32) 06/29/19 06:08 MCHC 34 % (32-34) 06/29/19 06:08 RDW 14.5 % (13.2-15.2) 06/29/19 06:08 Plt Count 66 K/mm3 (140-440) L 06/29/19 06:08 Lymph % (Auto) 4.5 % (13.4-35.0) L 06/28/19 18:56 [place] % (Auto) 8.0 % (0.0-7.3) H 06/28/19 18:56 Eos % (Auto) 2.5 % (0.0-4.3) 06/28/19 18:56 Baso % (Auto) 0.3 % (0.0-1.8) 06/28/19 18:56 Lymph # 0.1 K/mm3 (1.2-5.4) L 06/28/19 18:56 [place] # 0.3 K/mm3 (0.0-0.8) 06/28/19 18:56 Eos # 0.1 K/mm3 (0.0-0.4) 06/28/19 18:56 Baso # 0.0 K/mm3 (0.0-0.1) 06/28/19 18:56 Add Manual Diff Complete 06/29/19 06:08 Total Counted 100 06/29/19 06:08 Seg Neutrophils % 84.7 % (40.0-70.0) H 06/28/19 18:56 Seg Neuts % (Manual) 57.0 % (40.0-70.0) 06/29/19 06:08 Band Neutrophils % 30.0 % 06/29/19 06:08 Lymphocytes % (Manual) 6.0 % (13.4-35.0) L 06/29/19 06:08 Reactive Lymphs % (Man) 0 % 06/29/19 06:08 Monocytes % (Manual) 2.0 % (0.0-7.3) 06/29/19 06:08 Eosinophils % (Manual) 5.0 % (0.0-4.3) H 06/29/19 06:08 Basophils % (Manual) 0 % (0.0-1.8) 06/29/19 06:08 Metamyelocytes % 0 % 06/29/19 06:08 Myelocytes % 0 % 06/29/19 06:08 Promyelocytes % 0 % 06/29/19 06:08 Blast Cells % 0 % 06/29/19 06:08 Nucleated RBC % Not Reportable 06/29/19 06:08 Seg Neutrophils # 2.7 K/mm3 (1.8-7.7) 06/28/19 18:56 Seg Neutrophils # Man 1.0 K/mm3 (1.8-7.7) L 06/29/19 06:08 Band Neutrophils # 0.5 K/mm3 06/29/19 06:08 Lymphocytes # (Manual) 0.1 K/mm3 (1.2-5.4) L 06/29/19 06:08 Abs React Lymphs (Man) 0.0 K/mm3 06/29/19 06:08 Monocytes # (Manual) 0.0 K/mm3 (0.0-0.8) 06/29/19 06:08 Eosinophils # (Manual) 0.1 K/mm3 (0.0-0.4) 06/29/19 06:08 Basophils # (Manual) 0.0 K/mm3 (0.0-0.1) 06/29/19 06:08 Metamyelocytes # 0.0 K/mm3 06/29/19 06:08 Myelocytes # 0.0 K/mm3 06/29/19 06:08 Promyelocytes # 0.0 K/mm3 06/29/19 06:08 Blast Cells # 0.0 K/mm3 06/29/19 06:08 WBC Morphology Not Reportable 06/29/19 06:08 Hypersegmented Neuts Not Reportable 06/29/19 06:08 Hyposegmented Neuts Not Reportable 06/29/19 06:08 Hypogranular Neuts Not Reportable 06/29/19 06:08 Smudge Cells Not Reportable 06/29/19 06:08 Toxic Granulation Not Reportable 06/29/19 06:08 Toxic Vacuolation Not Reportable 06/29/19 06:08 Dohle Bodies Not Reportable 06/29/19 06:08 Pelger-Huet Anomaly Not Reportable 06/29/19 06:08 Lyle Rods Not Reportable 06/29/19 06:08 Platelet Estimate Consistent w auto 06/29/19 06:08 Clumped Platelets Not Reportable 06/29/19 06:08 Plt Clumps, EDTA Not Reportable 06/29/19 06:08 Large Platelets Not Reportable 06/29/19 06:08 Giant Platelets Not Reportable 06/29/19 06:08 Platelet Satelliting Not Reportable 06/29/19 06:08 Plt Morphology Comment Not Reportable 06/29/19 06:08 RBC Morphology Not Reportable 06/29/19 06:08 Dimorphic RBCs Not Reportable 06/29/19 06:08 Polychromasia Not Reportable 06/29/19 06:08 Hypochromasia Not Reportable 06/29/19 06:08 Poikilocytosis Not Reportable 06/29/19 06:08 Anisocytosis Not Reportable 06/29/19 06:08 Microcytosis Not Reportable 06/29/19 06:08 Macrocytosis Not Reportable 06/29/19 06:08 Spherocytes Not Reportable 06/29/19 06:08 Pappenheimer Bodies Not Reportable 06/29/19 06:08 Sickle Cells Not Reportable 06/29/19 06:08 Target Cells Not Reportable 06/29/19 06:08 Tear Drop Cells Not Reportable 06/29/19 06:08 Ovalocytes 1+ 06/29/19 06:08 Helmet Cells Not Reportable 06/29/19 06:08 [place] Bodies Not Reportable 06/29/19 06:08 [place] Rings Not Reportable 06/29/19 06:08 [place] Cells Few 06/29/19 06:08 Bite Cells Not Reportable 06/29/19 06:08 Crenated Cell Not Reportable 06/29/19 06:08 Elliptocytes Not Reportable 06/29/19 06:08 Acanthocytes (Spur) Not Reportable 06/29/19 06:08 Rouleaux Not Reportable 06/29/19 06:08 Hemoglobin C Crystals Not Reportable 06/29/19 06:08 Schistocytes Not Reportable 06/29/19 06:08 Malaria parasites Not Reportable 06/29/19 06:08 Andrea Bodies Not Reportable 06/29/19 06:08 Hem Pathologist Commnt No 06/29/19 06:08 PT 25.2 Sec. (12.2-14.9) H 06/28/19 21:56 INR 2.34 (0.87-1.13) H 06/28/19 21:56 APTT 46.6 Sec. (24.2-36.6) H 06/28/19 21:56 Sodium 134 mmol/L (137-145) L 06/29/19 06:08 Potassium 4.0 mmol/L (3.6-5.0) 06/29/19 06:08 Chloride 99.6 mmol/L (98-107) 06/29/19 06:08 Carbon Dioxide 21 mmol/L (22-30) L 06/29/19 06:08 Anion Gap 17 mmol/L 06/29/19 06:08 BUN 16 mg/dL (9-20) 06/29/19 06:08 Creatinine 0.5 mg/dL (0.8-1.5) L 06/29/19 06:08 Estimated GFR > 60 ml/min 06/29/19 06:08 BUN/Creatinine Ratio 32 % 06/29/19 06:08 Glucose 76 mg/dL (75-100) 06/29/19 06:08 Lactic Acid 1.00 mmol/L (0.7-2.0) 06/28/19 21:56 Calcium 8.0 mg/dL (8.4-10.2) L 06/29/19 06:08 Magnesium 0.70 mg/dL (1.7-2.3) L* 06/28/19 21:56 Total Bilirubin 8.80 mg/dL (0.1-1.2) H 06/29/19 06:08 Direct Bilirubin 3.2 mg/dL (0-0.2) H 06/28/19 21:56 Indirect Bilirubin 0.1 mg/dL 06/28/19 21:56 AST 7964 units/L (5-40) H 06/29/19 06:08 ALT 5452 units/L (7-56) H 06/29/19 06:08 Alkaline Phosphatase 226 units/L (35-129) H 06/29/19 06:08 Ammonia 19.0 umol/L (25-60) L 06/28/19 21:56 Total Creatine Kinase 13 units/L (55-170) L 06/28/19 21:56 Total Protein 5.2 g/dL (6.3-8.2) L D 06/29/19 06:08 Albumin 3.0 g/dL (3.9-5) L 06/29/19 06:08 Albumin/Globulin Ratio 1.4 % 06/29/19 06:08 Lipase 7 units/L (13-60) L 06/28/19 18:56 Urine Color [place] (Yellow) 06/28/19 18:44 Urine Turbidity Slightly-cloudy (Clear) 06/28/19 18:44 Urine pH 5.0 (5.0-7.0) 06/28/19 18:44 Ur Specific [place] 1.034 (1.003-1.030) H 06/28/19 18:44 Urine Protein 100 mg/dl mg/dL (Negative) 06/28/19 18:44 Urine Glucose (UA) Neg mg/dL (Negative) 06/28/19 18:44 Urine Ketones Neg mg/dL (Negative) 06/28/19 18:44 Urine Blood Sm (Negative) 06/28/19 18:44 Urine Nitrite Neg (Negative) 06/28/19 18:44 Urine Bilirubin Mod (Negative) 06/28/19 18:44 Urine Ictotest Positive (Negative) 06/28/19 18:44 Urine Urobilinogen 4.0 mg/dL (<2.0) 06/28/19 18:44 Ur Leukocyte Esterase Neg (Negative) 06/28/19 18:44 Urine WBC (Auto) 7.0 /HPF (0.0-6.0) H 06/28/19 18:44 Urine RBC (Auto) 4.0 /HPF (0.0-6.0) 06/28/19 18:44 U Epithel Cells (Auto) 1.0 /HPF (0-13.0) 06/28/19 18:44 Urine Bacteria (Auto) 1+ /HPF (Negative) 06/28/19 18:44 Urine Mucus 2+ /HPF 06/28/19 18:44 Urine Yeast (Budding) 2+ /HPF 06/28/19 18:44 Salicylates < 0.3 mg/dL (2.8-20.0) L 06/28/19 21:56 Acetaminophen < 5.0 ug/mL (10.0-30.0) L 06/28/19 21:56 Plasma/Serum Alcohol < 0.01 % (0-0.07) 06/28/19 21:56 Active Medications - Current Medications Current Medications: Generic Name Dose Route Start Last Admin Trade Name Freq PRN Reason Stop Dose Admin Acetaminophen 650 mg 06/28/19 23:58 Tylenol PO Q4H PRN Pain MILD(1-3)/Fever >100.5/VENCES Hydromorphone HCl 0.5 mg 06/29/19 10:42 06/29/19 11:29 Dilaudid IV 0.5 mg Q3H PRN Administration Pain , Severe (7-10) Sodium Chloride 1,000 mls @ 100 mls/hr 06/28/19 23:45 06/29/19 03:35 Nacl 0.9% 1000 Ml IV 100 mls/hr DIRECT JV Administration Piperacillin Sod/Tazobactam Sod 4.5 gm in 100 mls @ 200 mls/hr 06/29/19 06:00 06/29/19 06:19 Zosyn/Ns 4.5gm/100ml IV 200 mls/hr Q8HR JV Administration Protocol Ondansetron HCl 4 mg 06/28/19 23:58 Zofran IV Q8H PRN Nausea And Vomiting Sodium Chloride 10 ml 06/29/19 10:00 06/29/19 11:29 Sodium Chloride Flush Syringe 10 Ml IV 10 ml BID JV Administration Sodium Chloride 10 ml 06/28/19 23:58 Sodium Chloride Flush Syringe 10 Ml IV PRN PRN LINE FLUSH
[2019-06-29 14:40] LABS: INR 1.86 (0.87-1.13)
[2019-06-29 14:47] LABS: Albumin 3.1 g/dL (3.9-5); Bilirubin,Direct 8.8 mg/dL (0-0.2)
[2019-06-29 14:55] LABS: Hepatitis B Surface Antigen Non-Reactive (Negative); Hepatitis C Virus Antibody Reactive (NonReactive)
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
[2019-06-30] MEDS: HYDROmorphone 1 MG/1 ML INJ IV PRN ×5 (05:15→20:56)
[2019-06-30] MEDS: PIPERACIL/TAZOBACTA 4.5/NS 100 4.5 GM/100 ML VIAL IV SCH ×3 (05:29→21:56)
[2019-06-30 10:34] LABS: Hematocrit 42.3 % (35.5-45.6); Hemoglobin 14.6 gm/dl (11.8-15.2); Mean Corpuscular HGB Conc 35 % (32-34); Mean Corpuscular Volume 83 fl (84-94); Platelet Count 110 K/mm3 (140-440); Red Blood Count 5.09 M/mm3 (3.65-5.03); Red Cell Distribution Width 14.7 % (13.2-15.2)
[2019-06-30 10:50] LABS: Albumin 2.9 g/dL (3.9-5); BUN/Creatinine Ratio 90; Blood Urea Nitrogen 18 mg/dL (9-20); Calcium 8.4 mg/dL (8.4-10.2); Hemolysis Index 27
[2019-06-30 12:02] LABS: Alanine Aminotransferase 5598 units/L (7-56)
[2019-06-30] MEDS: SODIUM CHLORIDE 0.9% 1000 ML 1,000 ML IV SCH (12:25)
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
[2019-06-30 13:30] LABS: INR 1.68 (0.87-1.13)
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
[2019-07-01] MEDS: HYDROmorphone 1 MG/1 ML INJ IV PRN ×6 (00:48→20:34)
[2019-07-01] MEDS: PIPERACIL/TAZOBACTA 4.5/NS 100 4.5 GM/100 ML VIAL IV SCH ×3 (05:56→21:08)
[2019-07-01 07:00] LABS: Albumin 2.7 g/dL (3.9-5); BUN/Creatinine Ratio 30; Blood Urea Nitrogen 12 mg/dL (9-20); Calcium 7.8 mg/dL (8.4-10.2); Hemolysis Index 0
[2019-07-01 07:13] LABS: Alanine Aminotransferase 3572 units/L (7-56)
[2019-07-01] MEDS: SODIUM CHLORIDE 0.9% 1000 ML 1,000 ML IV SCH ×2 (12:17→20:34)
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
[2019-07-01] MEDS: oxyCODONE 5 MG TAB PO PRN (22:32)
[2019-07-02] MEDS: HYDROmorphone 1 MG/1 ML INJ IV PRN ×5 (00:27→21:27)
[2019-07-02] MEDS: oxyCODONE 5 MG TAB PO PRN ×4 (02:32→17:49)
[2019-07-02] MEDS: SODIUM CHLORIDE 0.9% 1000 ML 1,000 ML IV SCH ×2 (05:48→21:28)
[2019-07-02] MEDS: PIPERACIL/TAZOBACTA 4.5/NS 100 4.5 GM/100 ML VIAL IV SCH ×3 (05:49→21:26)
[2019-07-02 06:47] LABS: Albumin 2.6 g/dL (3.9-5); BUN/Creatinine Ratio 23; Blood Urea Nitrogen 9 mg/dL (9-20); Calcium 7.9 mg/dL (8.4-10.2); Hemolysis Index 0
[2019-07-02 06:55] LABS: Alanine Aminotransferase > 1878 units/L (7-56)
[2019-07-02] MEDS: MULTIVITAMINS ,THERAPEUTIC TAB PO SCH (08:52)
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
[2019-07-02] MEDS: NICOTINE 21 MG/24 HR PATCH TD SCH (15:49)
[2019-07-03] MEDS: oxyCODONE 5 MG TAB PO PRN ×3 (00:11→10:19)
[2019-07-03] MEDS: HYDROmorphone 1 MG/1 ML INJ IV PRN ×3 (02:26→13:34)
[2019-07-03] MEDS: PIPERACIL/TAZOBACTA 4.5/NS 100 4.5 GM/100 ML VIAL IV SCH ×2 (05:05→13:33)
[2019-07-03 06:44] LABS: Hematocrit 34.4 % (35.5-45.6); Hemoglobin 11.9 gm/dl (11.8-15.2); Mean Corpuscular HGB Conc 35 % (32-34); Mean Corpuscular Volume 83 fl (84-94); Platelet Count 139 K/mm3 (140-440); Red Blood Count 4.14 M/mm3 (3.65-5.03); Red Cell Distribution Width 14.9 % (13.2-15.2)
[2019-07-03 07:07] LABS: Albumin 2.7 g/dL (3.9-5); BUN/Creatinine Ratio 14; Blood Urea Nitrogen 7 mg/dL (9-20); Calcium 7.8 mg/dL (8.4-10.2); Hemolysis Index 0
[2019-07-03 08:10] LABS: Alanine Aminotransferase 1434 units/L (7-56)
[2019-07-03] MEDS: NICOTINE 21 MG/24 HR PATCH TD SCH (10:20)
[2019-07-03] MEDS: MULTIVITAMINS ,THERAPEUTIC TAB PO SCH (10:22)
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
[2019-07-03 15:57] VITALS: BP 130/86
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
[2019-07-05 21:23] LABS: ANA Screen, IFA Negative (Negative)
== END 2019-07-03 17:30 | disposition home or self-care (01) | DRG 442 ==
LOC: ED 18:12 → 3B-SURG 23:58
PROVIDERS: ADMIT Internal Medicine; ATTEND Internal Medicine
DX: B18.2 Chronic viral hepatitis C (principal); D68.9 Coagulation defect, unspecified; E87.1 Hypo-osmolality and hyponatremia; E44.0 Moderate protein-calorie malnutrition; D69.6 Thrombocytopenia, unspecified; F17.210 Nicotine dependence, cigarettes, uncomplicated; E83.42 Hypomagnesemia; R63.0 Anorexia; Z79.899 Other long term (current) drug therapy; Z82.49 Family history of ischemic heart disease and other diseases of the circulatory system; Z83.3 Family history of diabetes mellitus; Z68.25 Body mass index [BMI] 25.0-25.9, adult
CPT/HCPCS: 36415; 74177; 76705; 80053; 80074; 80076; 80320; 81001; 82140; 82247; 82248; 82390; 82550; 83690; 83735; 85007; 85025; 85027; 85610; 85730; 86038; 87040; 87086; 87116; 93005; 93010; G0378; G0480; J0696; J1170; J2270; J2405; J2543; J3475; J7030; J7040; Q9967

== ENCOUNTER 2019-07-26 17:43 | Emergency (ER) | payer OTHER ==
[2019-07-26 18:32] VITALS: BP 110/68
--- NOTE | 2019-07-26 18:34 | Emergency Department Report ---
ED ENT HPI - General Chief complaint: Dental/Oral Stated complaint: TOOTHACHE Time Seen by Provider: 07/26/19 18:09 Source: patient Mode of arrival: Ambulatory Limitations: No Limitations - History of Present Illness Initial comments: This is a 43-year-old male nontoxic well in appearance with no signs of distress presents to the ED with complaint of chronic toothache. Patient denies any facial swelling. Denies following up with a dentist. Denies any fever, chills, headache, nausea, vomiting, chest pain or SOB. Denies any other complaints. Denies any allergies. MD complaint: tooth pain -: year(s) Location: tooth # 1 - pain here Severity: mild Severity scale (0 -10): 8 Quality: aching Consistency: constant Improves with: none Worsens with: none Context- Dental: history of dental caries, poor dental care Associated Symptoms: gum swelling, toothache. denies: fever, cough, pain with swallowing, sore throat, tinnitus, hearing loss, discharge from ear, rhinorrhea - Related Data Previous Rx's Medication Instructions Recorded Last Taken Type Multivitamin Tab [Multiple Vitamin 1 each PO QDAY #30 tablet 07/03/19 Unknown Rx TAB (Theragran)] Nicotine [Habitrol] 21 mg TD QDAY #30 patch 07/03/19 Unknown Rx oxyCODONE [roxiCODONE] 10 mg PO Q4H PRN #20 tablet 07/03/19 Unknown Rx Allergies Allergy/AdvReac Type Severity Reaction Status Date / Time No Known Allergies Allergy Unverified 05/27/14 19:39 ED Dental HPI - General Chief complaint: Dental/Oral Stated complaint: TOOTHACHE Time Seen by Provider: 07/26/19 18:09 Source: patient Mode of arrival: Ambulatory Limitations: No Limitations - Related Data Previous Rx's Medication Instructions Recorded Last Taken Type Multivitamin Tab [Multiple Vitamin 1 each PO QDAY #30 tablet 07/03/19 Unknown Rx TAB (Theragran)] Nicotine [Habitrol] 21 mg TD QDAY #30 patch 07/03/19 Unknown Rx oxyCODONE [roxiCODONE] 10 mg PO Q4H PRN #20 tablet 07/03/19 Unknown Rx Allergies Allergy/AdvReac Type Severity Reaction Status Date / Time No Known Allergies Allergy Unverified 05/27/14 19:39 ED Review of Systems ROS: Stated complaint: TOOTHACHE Other details as noted in HPI Constitutional: denies: chills, fever Eyes: denies: eye pain, eye discharge, vision change ENT: dental pain. denies: ear pain, throat pain Respiratory: denies: cough, shortness of breath, wheezing Cardiovascular: denies: chest pain, palpitations Endocrine: no symptoms reported Gastrointestinal: denies: abdominal pain, nausea, diarrhea Genitourinary: denies: urgency, dysuria Musculoskeletal: denies: back pain, joint swelling, arthralgia Skin: denies: rash, lesions Neurological: denies: headache, weakness, paresthesias Psychiatric: denies: anxiety, depression Hematological/Lymphatic: denies: easy bleeding, easy bruising ED Past Medical Hx - Past Medical History Previous Medical History?: Yes Hx Congestive Heart Failure: No Hx Diabetes: No Hx Asthma: No Hx COPD: No Hx HIV: No Additional medical history: Hep C - Surgical History Past Surgical History?: No - Social History Smoking Status: Current Every Day Smoker - Medications Home Medications: Home Medications Medication Instructions Recorded Confirmed Last Taken Type Multivitamin Tab [Multiple Vitamin 1 each PO QDAY #30 tablet 07/03/19 Unknown Rx TAB (Theragran)] Nicotine [Habitrol] 21 mg TD QDAY #30 patch 07/03/19 Unknown Rx oxyCODONE [roxiCODONE] 10 mg PO Q4H PRN #20 tablet 07/03/19 Unknown Rx ED Physical Exam - General Limitations: No Limitations General appearance: alert, in no apparent distress - Head Head exam: Present: atraumatic, normocephalic - Expanded ENT Exam Expanded Ear exam: Present: normal external inspection Mouth exam: Present: normal external inspection. Absent: drooling, trismus, muffled voice Teeth exam: Present: dental caries, fractured tooth #, dental tenderness #, gingival enlargement, other (no facial swelling. no abscess) Throat exam: Positive: normal inspection, other (uvula midline). Negative: tonsillar erythema, tonsillomegaly, tonsillar exudate, R peritonsillar mass, L peritonsillar mass - Neck Neck exam: Present: normal inspection, full ROM. Absent: tenderness, meningismus, lymphadenopathy ED Course - Reevaluation(s) Reevaluation #1: 07/26/19 18:32 Patient is speaking in full sentences with no signs of distress noted. ED Medical Decision Making - Medical Decision Making This is a 43-year-old male that presents with nonmedical emergency complaint. No abscess or celluliktis noted. I gave patient many different referrals to follow-up with dentist. Patient was instructed to Follow-up with a dentist doctor in 3-5 days or if symptoms worsen and continue return to emergency room as soon as possible. At time of discharge, the patient does not seem toxic or ill in appearance. No acute signs of distress noted. Patient agrees to discharge treatment plan of care. No further questions noted by the patient. Critical care attestation.: If time is entered above; I have spent that time in minutes in the direct care of this critically ill patient, excluding procedure time. ED Disposition Clinical Impression: Toothache Disposition: Z-07 MED SCREENING EXAM-LEFT Is pt being admited?: No Does the pt Need Aspirin: No Condition: Stable Additional Instructions: Follow-up with a dentist doctor in 3-5 days or if symptoms worsen and continue return to emergency room as soon as possible. Referrals: [facility] [Referring] - 3-5 Days MATILDE DAVIS MD [Staff Physician] - 3-5 Days [facility] [Outside] - 3-5 Days
== END 2019-07-26 19:31 | disposition left against medical advice (07) ==
LOC: ED 17:43
DX: K08.89 Other specified disorders of teeth and supporting structures (principal); F17.200 Nicotine dependence, unspecified, uncomplicated; Z79.899 Other long term (current) drug therapy
CPT/HCPCS: 99282

== ENCOUNTER 2020-05-28 16:30 | Emergency (ER) | payer SELFPAY ==
[2020-05-28] MEDS ORDERED: NALOXONE 0.4 MG/1 ML INJ IV PRN (17:24)
--- NOTE | 2020-05-28 17:26 | Emergency Department Report ---
ED General Adult HPI - General Chief complaint: Altered Mental Status Stated complaint: GENERAL WEAKNESS PUI?: No Time Seen by Provider: 05/28/20 17:13 Source: patient, EMS ( EMS documentation not available at time of chart dictation ), RN notes reviewed Mode of arrival: Stretcher Limitations: Altered Mental Status, Physical Limitation - History of Present Illness Initial comments: The patient was evaluated in the emergency department for symptoms described in the history of present illness. He/she was evaluated in the context of the global COVID-19 pandemic, which necessitated consideration that the patient might be at risk for infection with the virus that causes COVID-19. Institutional protocols and algorithms that pertain to the evaluation of patients at risk for COVID-19 are in a state of rapid change based on i nformation released by regulatory bodies including the CDC and federal and state organizations. These policies and algorithms were followed during the patient's care in the emergency department. Please note that these policies, procedures and recommendations changed on a rapid basis. Patient is a 44-year-old gentleman. He is not known to myself previously. The patient presents to the ER today with a complaint of painless request for heroin detox. Apparently, the patient was found walking next to his truck, and it is not known who contacted emergency medical services. In the hospital, the patient is sleepy but arousable. He denies physical pain. He denies homicidality and suicidality. He tells me that he lives locally, but he cannot provide his address. His history is limited as he is sleepy, and appears to be intoxicated. He is not accompanied by friends or family at this time for additional information or collateral information. -: unknown Radiation: other Quality: other Consistency: other Improves with: other Worsens with: other Associated Symptoms: other - Related Data Previous Rx's Medication Instructions Recorded Last Taken Type Multivitamin Tab [Multiple Vitamin 1 each PO QDAY #30 tablet 07/03/19 Unknown Rx TAB (Theragran)] Nicotine [Habitrol] 21 mg TD QDAY #30 patch 07/03/19 Unknown Rx Naloxone HCl [Narcan Nasal [place]] 4 mg NS PRN PRN #1 spray 05/29/20 Unknown Rx Ondansetron [Zofran Odt] 4 mg PO Q8HR PRN #20 tab.rapdis 05/29/20 Unknown Rx cloNIDine [Catapres] 0.1 mg PO BID PRN #30 tablet 05/29/20 Unknown Rx Allergies Allergy/AdvReac Type Severity Reaction Status Date / Time No Known Allergies Allergy Unverified 05/27/14 19:39 ED Review of Systems ROS: Stated complaint: GENERAL WEAKNESS Other details as noted in HPI Comment: Unobtainable due to pts medical conditions Constitutional: malaise. denies: fever Cardiovascular: denies: chest pain Gastrointestinal: denies: abdominal pain Neurological: denies: headache Psychiatric: denies: homicidal thoughts, suicidal thoughts ED Past Medical Hx - Past Medical History Hx Congestive Heart Failure: No Hx Diabetes: No Hx Asthma: No Hx COPD: No Hx HIV: No Additional medical history: Hep C - Social History Smoking Status: Current Every Day Smoker Substance Use Type: Heroin - Medications Home Medications: Home Medications Medication Instructions Recorded Confirmed Last Taken Type Multivitamin Tab [Multiple Vitamin 1 each PO QDAY #30 tablet 07/03/19 Unknown Rx TAB (Theragran)] Nicotine [Habitrol] 21 mg TD QDAY #30 patch 07/03/19 Unknown Rx Naloxone HCl [Narcan Nasal [place]] 4 mg NS PRN PRN #1 spray 05/29/20 Unknown Rx Ondansetron [Zofran Odt] 4 mg PO Q8HR PRN #20 tab.rapdis 05/29/20 Unknown Rx cloNIDine [Catapres] 0.1 mg PO BID PRN #30 tablet 05/29/20 Unknown Rx ED Physical Exam - General Limitations: Altered Mental Status General appearance: in no apparent distress, lethargic - Head Head exam: Present: atraumatic, normocephalic - Eye Eye exam: Present: normal appearance, PERRL, EOMI - ENT ENT exam: Present: normal exam, normal orophraynx, mucous membranes moist, normal external ear exam - Neck Neck exam: Present: normal inspection, full ROM. Absent: tenderness, meningismus - Respiratory Respiratory exam: Present: normal lung sounds bilaterally. Absent: respiratory distress, wheezes, rales, rhonchi, stridor, decreased breath sounds - Cardiovascular Cardiovascular Exam: Present: regular rate, normal rhythm, normal heart sounds. Absent: bradycardia, tachycardia, irregular rhythm, systolic murmur, diastolic murmur, rubs, gallop - GI/Abdominal GI/Abdominal exam: Present: soft. Absent: distended, tenderness, guarding, sarah ound, rigid, pulsatile mass - Rectal Rectal exam: Present: deferred - Extremities Exam Extremities exam: Present: full ROM, other (2+ pulses noted in the bilateral upper and lower extremities. There is no palpable cord. negative Homans sign. Muscular compartments are soft. The pelvis is stable.). Absent: normal ins pection (Track painting noted in the left upper extremity, without redness, pus or streaks), pedal edema, calf tenderness - Back Exam Back exam: Present: normal inspection, full ROM. Absent: tenderness, CVA tenderness (R), CVA tenderness (L), paraspinal tenderness, vertebral tenderness - Neurological Exam Neurological exam: Present: altered, other (No facial droop. Tongue midline. Extraocular movements intact bilaterally. Facial sensation intact to light touch in V1, V2, V3 distribution bilaterally. 5 and a 5 strength in 4 extremities. Sensation intact to light touch in 4 extremities.) - Psychiatric Psychiatric exam: Present: flat affect. Absent: homicidal ideation, suicidal ideation - Skin Skin exam: Present: warm, dry, intact, normal color. Absent: rash ED Course Vital Signs 05/28/20 05/28/20 05/28/20 17:30 17:45 17:55 Temperature 97.6 F Pulse Rate 78 66 Respiratory 17 12 Rate Blood Pressure 84/57 84/57 Blood Pressure [Right] O2 Sat by Pulse 95 98 Oximetry 05/28/20 05/28/20 05/28/20 18:01 18:15 18:30 Temperature Pulse Rate 64 61 62 Respiratory 10 L 11 L Rate Blood Pressure 84/57 118/64 107/65 Blood Pressure [Right] O2 Sat by Pulse 96 97 Oximetry 05/28/20 05/28/20 05/28/20 19:02 19:16 19:30 Temperature Pulse Rate 46 L 58 L 57 L Respiratory 20 16 18 Rate Blood Pressure 118/64 128/79 107/54 Blood Pressure [Right] O2 Sat by Pulse 100 100 Oximetry 05/28/20 05/28/20 05/28/20 19:46 20:00 20:16 Temperature Pulse Rate 62 72 72 Respiratory 15 14 13 Rate Blood Pressure 107/65 112/67 112/67 Blood Pressure [Right] O2 Sat by Pulse 99 99 100 Oximetry 05/28/20 05/28/20 05/28/20 20:30 20:46 21:00 Temperature Pulse Rate 77 78 80 Respiratory 14 13 13 Rate Blood Pressure 110/57 110/57 112/67 Blood Pressure [Right] O2 Sat by Pulse 99 97 98 Oximetry 05/28/20 05/28/20 05/28/20 21:16 21:30 21:46 Temperature Pulse Rate 76 Respiratory 11 L 11 L 17 Rate Blood Pressure 112/67 112/73 112/73 Blood Pressure [Right] O2 Sat by Pulse 91 97 96 Oximetry 05/28/20 05/28/20 22:00 22:20 Temperature Pulse Rate 76 Respiratory 10 L 16 Rate Blood Pressure 125/78 Blood Pressure 125/78 [Right] O2 Sat by Pulse 96 Oximetry - Reevaluation(s) Reevaluation #1: 05/28/20 18:15 Differential diagnosis, including but not limited to: Opioid dependence, intracranial injury, electrolyte derangement, pneumonia, urinary tract infection Assessment and plan: 44-year-old gentleman, who is clinically intoxicated/impaired, with no evidence of blunt trauma to the head and/or neck, moving 4 extremities, who was reportedly found next to a truck, we will place the patient on a cardiac rehab nurse, obtain appropriate laboratory studies, CT scan of the brain, cervical spine, EKG, urinalysis, treat supportively and symptomatically, and await clinical sobriety. Reevaluation #2: 05/28/20 18:29 Blood pressure 118/65. Laboratory studies unremarkable. Patient protecting ai rway at this time. Awaiting clinical sobriety. Reevaluation #3: 05/28/20 22:12 CT scan of the cervical spine negative for acute disease. Laboratory studies unremarkable. Vital signs stable. Patient still appears impaired/intoxicated. He is sleeping comfortably at this time, and he is in no acute distress. Reevaluation #4: 05/29/20 00:31 Patient sleeping and in no acute distress. Given his request for narcotic detox, we will obtain a mental health consultation/evaluation to assist patient with this. At this point in time, patient does not appear to have an immediate medical contraindication to detox therapy. However, if the patient wakes up and decides that he would like to go, and he presents as alert, oriented, sober and exhibi ting decision-making capacity, discharged with outpatient follow-up was also be reasonable. Patient does not appear to have an emergent medical condition at this time which would require inpatient hospitalization. ED Medical Decision Making - Lab Data Result diagrams: 05/28/20 17:42 05/28/20 17:42 Vital Signs 05/28/20 05/28/20 05/28/20 17:30 17:45 17:55 Temperature 97.6 F Pulse Rate 78 66 Respiratory 17 12 Rate Blood Pressure 84/57 84/57 O2 Sat by Pulse 95 98 Oximetry Lab Results 05/28/20 Range/Units 17:42 WBC 4.9 (4.5-11.0) K/mm3 RBC 4.43 (3.65-5.03) M/mm3 Hgb 12.8 (11.8-15.2) gm/dl Hct 37.4 (35.5-45.6) % MCV 85 (84-94) fl MCH 29 (28-32) pg MCHC 34 (32-34) % RDW 13.9 (13.2-15.2) % Plt Count 224 (140-440) K/mm3 Vital Signs 05/28/20 05/28/20 05/28/20 17:30 17:45 17:55 Temperature 97.6 F Pulse Rate 78 66 Respiratory 17 12 Rate Blood Pressure 84/57 84/57 O2 Sat by Pulse 95 98 Oximetry Lab Results 05/28/20 05/28/20 05/28/20 Range/Units 17:42 17:42 17:42 WBC 4.9 (4.5-11.0) K/mm3 RBC 4.43 (3.65-5.03) M/mm3 Hgb 12.8 (11.8-15.2) gm/dl Hct 37.4 (35.5-45.6) % MCV 85 (84-94) fl MCH 29 (28-32) pg MCHC 34 (32-34) % RDW 13.9 (13.2-15.2) % Plt Count 224 (140-440) K/mm3 PT 12.3 (12.2-14.9) Sec. INR 0.90 (0.87-1.13) Sodium 138 (137-145) mmol/L Potassium 4.0 (3.6-5.0) mmol/L Chloride 100.7 (98-107) mmol/L Carbon Dioxide 28 (22-30) mmol/L Anion Gap 13 mmol/L BUN 17 (9-20) mg/dL Creatinine 0.8 (0.8-1.3) mg/dL Estimated GFR > 60 ml/min BUN/Creatinine Ratio 21 % Glucose 109 H (75-100) mg/dL Calcium 8.8 (8.4-10.2) mg/dL Magnesium (1.7-2.3) mg/dL Total Bilirubin 0.40 (0.1-1.2) mg/dL AST 22 (5-40) units/L ALT 22 (7-56) units/L Alkaline Phosphatase 93 (35-129) units/L Total Creatine Kinase 111 (55-170) units/L Total Protein 6.6 (6.3-8.2) g/dL Albumin 3.9 (3.9-5) g/dL Albumin/Globulin Ratio 1.4 % Salicylates (2.8-20.0) mg/dL Acetaminophen (10.0-30.0) ug/mL Plasma/Serum Alcohol (0-0.07) % 05/28/20 05/28/20 05/28/20 Range/Units 17:42 17:42 17:42 WBC (4.5-11.0) K/mm3 RBC (3.65-5.03) M/mm3 Hgb (11.8-15.2) gm/dl Hct (35.5-45.6) % MCV (84-94) fl MCH (28-32) pg MCHC (32-34) % RDW (13.2-15.2) % Plt Count (140-440) K/mm3 PT (12.2-14.9) Sec. INR (0.87-1.13) Sodium (137-145) mmol/L Potassium (3.6-5.0) mmol/L Chloride (98-107) mmol/L Carbon Dioxide (22-30) mmol/L Anion Gap mmol/L BUN (9-20) mg/dL Creatinine (0.8-1.3) mg/dL Estimated GFR ml/min BUN/Creatinine Ratio % Glucose (75-100) mg/dL Calcium (8.4-10.2) mg/dL Magnesium 2.10 (1.7-2.3) mg/dL Total Bilirubin (0.1-1.2) mg/dL AST (5-40) units/L ALT (7-56) units/L Alkaline Phosphatase (35-129) units/L Total Creatine Kinase (55-170) units/L Total Protein (6.3-8.2) g/dL Albumin (3.9-5) g/dL Albumin/Globulin Ratio % Salicylates < 0.3 L (2.8-20.0) mg/dL Acetaminophen 5.0 L (10.0-30.0) ug/mL Plasma/Serum Alcohol (0-0.07) % 05/28/20 Range/Units 17:42 WBC (4.5-11.0) K/mm3 RBC (3.65-5.03) M/mm3 Hgb (11.8-15.2) gm/dl Hct (35.5-45.6) % MCV (84-94) fl MCH (28-32) pg MCHC (32-34) % RDW (13.2-15.2) % Plt Count (140-440) K/mm3 PT (12.2-14.9) Sec. INR (0.87-1.13) Sodium (137-145) mmol/L Potassium (3.6-5.0) mmol/L Chloride (98-107) mmol/L Carbon Dioxide (22-30) mmol/L Anion Gap mmol/L BUN (9-20) mg/dL Creatinine (0.8-1.3) mg/dL Estimated GFR ml/min BUN/Creatinine Ratio % Glucose (75-100) mg/dL Calcium (8.4-10.2) mg/dL Magnesium (1.7-2.3) mg/dL Total Bilirubin (0.1-1.2) mg/dL AST (5-40) units/L ALT (7-56) units/L Alkaline Phosphatase (35-129) units/L Total Creatine Kinase (55-170) units/L Total Protein (6.3-8.2) g/dL Albumin (3.9-5) g/dL Albumin/Globulin Ratio % Salicylates (2.8-20.0) mg/dL Acetaminophen (10.0-30.0) ug/mL Plasma/Serum Alcohol < 0.01 (0-0.07) % - EKG Data -: EKG Interpreted by Ct Rate: bradycardia - EKG Data When compared to previous EKG there are: previous EKG unavailable 05/28/20 18:28 Sinus rhythm, bradycardia, 58 bpm, normal axis, WI interval prolonged, high left ventricular voltage, motion artifact, poor R wave progression. Abnormal EKG. Not a STEMI. QTc within normal limits. - Radiology Data Radiology results: report reviewed, image reviewed Print Report Referring Physician: RUPERT GREEN Patient Name: DARWIN TAMAYO Date of : 1975 Sex: Male Report Date: 2020-05-28 Report Status: Finalized Findings [facility] [address] [place] [address] Cat Scan Report Signed Patient: DARWIN TAMAYO MR#: [id number] : 1975 Acct:[id number] Age/Sex: 44 / M ADM Date: 05/28/20 Loc: ED Attending Dr: Ordering Physician: RUPERT GREEN MD Date of Service: 05/28/20 Procedure(s): CT head/brain wo con Accession Number(s): [id number] cc: RUPERT GREEN MD CT head/brain wo con INDICATION: Altered Mental Status. TECHNIQUE: Routine CT head. All CT scans at this location are performed using CT dose reduction for ALARA by means of automated exposure control. COMPARISON: None. FINDINGS: Intracranial: Whittaker-white matter differentiation is maintained. No intracranial hemorrhage. No extra axial collection.. No hydrocephalus. No herniation. Sinuses: Paranasal sinuses and mastoid air cells are essentially clear. Orbits: Globes are intact. Calvarium: No acute fracture. IMPRESSION: 1. No acute intracranial abnormality. Signer Name: Kamron Garcia MD Signed: 05/28/2020 6:01 PM Workstation Name: [id number] Transcribed By: CS Dictated By: Kamron Garcia MD Electronically Authenticated By: Kamron Garcia MD Signed Date/Time: 05/28/201800 DD/ 1800 TD/TT: Print Report Referring Physician: RUPERT GREEN Patient Name: DARWIN TAMAYO Date of : 1975 Sex: Male Report Date: 2020-05-28 Report Status: Finalized Findings [address] [address] XRay Report Signed Patient: DARWIN TAMAYO MR#: [id number] : 1975 Acct:[id number] Age/Sex: 44 / M ADM Date: 05/28/20 Loc: ED Attending Dr: Ordering Physician: RUPERT GREEN MD Date of Service: 05/28/20 Procedure(s): XR chest 1V ap Accession Number(s): [id number] cc: RUPERT GREEN MD Fluoro Time In Minutes: CHEST 1 VIEW INDICATION / CLINICAL INFORMATION: Altered Mental Status. COMPARISON: None available. FINDINGS: SUPPORT DEVICES: None. HEART / MEDIASTINUM: No significant abnormality. LUNGS / PLEURA: Mild interstitial prominence No pneumothorax. ADDITIONAL FINDINGS: No significant additional findings. IMPRESSION: Mild interstitial prominence is present. Signer Name: Stefan Tiwari MD FACR Signed: 05/28/2020 6:01 PM Workstation Name: [email or web address] Transcribed By: MS Dictated By: Stefan Tiwari MD Electronically Authenticated By: Stefan Tiwari MD Signed Date/Time: 05/28/201800 DD/ 00 TD/TT: Print Report Referring Physician: RUPERT GREEN Patient Name: DARWIN TAMAYO Date of : 1975 Sex: Male Report Date: 2020-05-28 Report Status: Finalized Findings [address] [address] Cat Scan Report Signed Patient: DARWIN TAMAYO MR#: [id number] : 1975 Acct:[id number] Age/Sex: 44 / M ADM Date: 05/28/20 Loc: ED Attending Dr: Ordering Physician: RUPERT GREEN MD Date of Service: 05/28/20 Procedure(s): CT cervical spine wo con Accession Number(s): [id number] cc: RUPERT GREEN MD CT CERVICAL SPINE WITHOUT CONTRAST INDICATION: ams, found down, cant celar c spine. TECHNIQUE: Axial imaging performed through the cervical spine without the use of contrast. Sagittal and coronal reconstructed images were also reviewed. All CT scans at this location are pe rformed using CT dose reduction for ALARA by means of automated exposure control. COMPARISON: None FINDINGS: Alignment: Spinal alignment is normal. Bones: There is no acute osseous abnormality. Mild degenerative disc disease is identified at C4-5 and C5-6. The facet joints are unremarkable Soft tissues: No acute or significant incidental soft tissue abnormality. Moderate emphysematous changes are noted at the lung apices. IMPRESSION: No acute abnormality. Mild cervical spondylosis. Emphysematous changes at the lung apices. Signer Name: Donny Ignacio Jr, MD Signed: 05/28/2020 7:06 PM Workstation Name: [id number] Transcribed By: TTR Dictated By: DONNY IGNACIO JR, MD Electronically Authenticated By: DONNY IGNACIO JR, MD Signed Date/Time: 05/28/201905 DD/ 03 TD/TT: Critical care attestation.: If time is entered above; I have spent that time in minutes in the direct care of this critically ill patient, excluding procedure time. ED Disposition Clinical Impression: Narcotic dependence, General medical exam Is pt being admited?: No Does the pt Need Aspirin: No Condition: Stable Additional Instructions: Recommend the patient not drive or operate motor vehicles for the next 6 months, or until cleared to do so by a primary care doctor. Recommend that patient discontinue consumption of narcotics, heroin, and recreational drugs. Consumption of the aforementioned may cause addiction, , disability, paralysis, loss of quality of life. If patient decides to discontinue narcotic therapy, he may take Zofran as needed for nausea, and clonidine as needed for symptoms of opioid withdrawal, including nausea, vomiting, diarrhea, abdominal cramping, and piloerection/sensation of hair erection. Follow-up with the outpatient resources that are provided to the patient, follow-up with an outpatient primary care doctor and/or therapist within the next week. Take the medications as needed/prescribed for nausea, vomiting, and withdrawal. Use Narcan medication for symptoms of opioid overdose, including respiratory depression, change in mental status and confusion. If any of these symptoms develop, use Narcan as directed, and contact 911 right away. Please return to the emergency room right away with new pain, worsened pain, migration of pain, projectile vomiting, change in mental status, confusion, inability to tolerate liquid feeds, new, worsened or different symptoms not present on the initial emergency room evaluation. Referrals: [facility] [Provider Group] - 3-5 Days [facility] [Outside] - 3-5 Days
[2020-05-28 18:03] LABS: Hematocrit 37.4 % (35.5-45.6); Hemoglobin 12.8 gm/dl (11.8-15.2); Mean Corpuscular HGB Conc 34 % (32-34); Mean Corpuscular Volume 85 fl (84-94); Platelet Count 224 K/mm3 (140-440); Red Blood Count 4.43 M/mm3 (3.65-5.03); Red Cell Distribution Width 13.9 % (13.2-15.2)
--- NOTE | 2020-05-28 18:05 | Cat Scan Report ---
CT head/brain wo con INDICATION: Altered Mental Status. TECHNIQUE: Routine CT head. All CT scans at this location are performed using CT dose reduction for A OWEN by means of automated exposure control. COMPARISON: None. FINDINGS: Intracranial: Whittaker-white matter differentiation is maintained. No intracranial hemorrhage. No extra a xial collection.. No hydrocephalus. No herniation. Sinuses: Paranasal sinuses and mastoid air cells are essentially clear. Orbits: Globes are intact. Calvarium: No acute fracture. IMPRESSION: 1. No acute intracranial abnormality. Signer Name: Kamron Garcia MD Signed: 05/28/2020 6:01 PM Workstation Name: [id number]
--- NOTE | 2020-05-28 18:06 | XRay Report ---
CHEST 1 VIEW INDICATION / CLINICAL INFORMATION: Altered Mental Status. COMPARISON: None available. FINDINGS: SUPPORT DEVICES: None. HEART / MEDIASTINUM: No significant abnormality. LUNGS / PLEURA: Mild interstitial prominence No pneumothorax. ADDITIONAL FINDINGS: No significant additional findings. IMPRESSION: Mild interstitial prominence is present. Signer Name: Stefan Tiwari MD FACR Signed: 05/28/2020 6:01 PM Workstation Name: [id number]
[2020-05-28] MEDS ORDERED: SODIUM CHLORIDE 0.9% 1000 ML 2,000 ML IV ONE (18:12)
[2020-05-28 18:15] LABS: INR 0.9 (0.87-1.13)
[2020-05-28 18:24] LABS: Alanine Aminotransferase 22 units/L (7-56); Albumin 3.9 g/dL (3.9-5); BUN/Creatinine Ratio 21; Blood Urea Nitrogen 17 mg/dL (9-20); Calcium 8.8 mg/dL (8.4-10.2); Hemolysis Index 7
--- NOTE | 2020-05-28 19:10 | Cat Scan Report ---
CT CERVICAL SPINE WITHOUT CONTRAST INDICATION: ams, found down, cant celar c spine. TECHNIQUE: Axial imaging performed through the cervical spine without the use of contrast. Sagittal and coronal reconstructed images were also reviewed. All CT scans at this location are performed us ing CT dose reduction for ALARA by means of automated exposure control. COMPARISON: None FINDINGS: Alignment: Spinal alignment is normal. Bones: There is no acute osseous abnormality. Mild degenerative disc disease is identified at C4-5 and C5-6. The facet joints are unremarkable Soft tissues: No acute or significant incidental soft tissue abnormality. Moderate emphysematous waqas nges are noted at the lung apices. IMPRESSION: No acute abnormality. Mild cervical spondylosis. Emphysematous changes at the lung apice s. Signer Name: Donny Ignacio Jr, MD Signed: 05/28/2020 7:06 PM Workstation Name: [id number]
[2020-05-28 21:53] LABS: Bilirubin,Urine NEG (Negative); Blood,Urine NEG (Negative); Color,Urine Yellow (Yellow); Mucus,Urine FEW /HPF; Protein,Urine <15 mg/dL mg/dL (Negative)
[2020-05-29 00:55] VITALS: BP 126/78
== END 2020-05-29 01:32 ==
LOC: ED 16:30
DX: F11.20 Opioid dependence, uncomplicated (principal); F17.200 Nicotine dependence, unspecified, uncomplicated; Z79.899 Other long term (current) drug therapy; Z00.01 Encounter for general adult medical examination with abnormal findings
CPT/HCPCS: 36415; 70450; 71045; 72125; 80053; 81001; 82140; 82550; 83735; 84443; 85027; 85610; 87086; 93005; 96374; 99285; J2310; J7030; 80320; G0480